=== PATIENT | female | born 1965 | race American Indian/Alaskan Native ===

== ENCOUNTER 2020-05-10 17:04 | Inpatient (IN) | payer BC, OTHER ==
[2020-05-10] MEDS ORDERED: Acetaminophen 325 MG Tab PO PRN (17:13)
[2020-05-10] MEDS ORDERED: Acetaminophen 650 MG Supp RECTAL PRN (17:13)
[2020-05-10] MEDS ORDERED: Dextrose 5%-Lactated Ringers 1,000 ML IV SCH (17:15)
[2020-05-10] MEDS: Pantoprazole 40 MG Vial IV SCH (18:41)
[2020-05-10] MEDS: Formoterol/Mometasone 200-5 MCG 8.8 GM Inhaler IH SCH (20:59)
[2020-05-11] MEDS: Pantoprazole 40 MG Vial IV SCH ×2 (05:57→17:02)
--- NOTE | 2020-05-11 07:35 | PCM.HP.2 ---
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 She was last seen in the clinic for follow up in 2008. Has had no problems related to her weight loss surgery. On April was diagnosed with C Difficile and was treated with Vancomycin. Her last BM was 05/06/2020. With the diagnosis of C Diff she started having bright red stools with blood clots then stools turned to dark formed stools. Persistent weakness and light headedness brought her to [facility] and her hemoglobin went from 14.5 to 6.2. Samia was transferred to [place], [place] ED and was given 1 unit of blood before being transferred to [facility] in [place]. Samia states she is still weak but feeling better. Has recieved a total of 3 units of PRBCs and hemoglobin is 8.4. No other associated signs and symptoms. - Related Data Allergies/Adverse Reactions: Allergies Allergy/AdvReac Type Severity Reaction Status Date / Time No Known Allergies Allergy Verified 07/29/14 13:27 Home Medications: Home Meds Albuterol Sulfate [Albuterol Sulfate HFA] 1 - 2 puff IH ASDIRECTED PRN 07/15/14 [History] Ferrous Gluconate 324 mg PO DAILY 07/15/14 [History] Furosemide [Lasix] 40 mg PO DAILY 07/15/14 [History] Loratadine 10 mg PO DAILY 07/15/14 [History] Naproxen [Naprosyn] 500 mg PO Q12HR 07/15/14 [History] Omeprazole [priLOSEC OTC] 20 mg PO DAILY 07/15/14 [History] Simvastatin [Zocor] 10 mg PO DAILY 07/15/14 [History] Cyanocobalamin (Vitamin B-12) [Vitamin B-12] 1,000 mcg PO DAILY 05/10/20 [History] Levothyroxine 125 mcg PO ACBREAKFAST 05/10/20 [History] Montelukast [Singulair] 10 mg PO DAILY 05/10/20 [History] Past Medical History HEENT History: Reports: Impaired Vision Cardiovascular History: Reports: Heart Murmur, High Cholesterol Respiratory History: Reports: Asthma ENROLLMENT ADVISOR History: Reports: Musculoskeletal History: Reports: Osteoarthritis Hematologic History: Reports: B12 Deficiency, Blood Transfusion(s) - Infectious Disease History Infectious Disease History: Reports: C-Difficile, Chicken Pox - Past Surgical History HEENT Surgical History: Reports: None Cardiovascular Surgical History: Reports: None GI Surgical History: Reports: Bariatric Procedure, Colonoscopy, EGD, Esophageal Dilatation Endocrine Surgical History: Reports: Thyroidectomy Musculoskeletal Surgical History: Reports: Arthroscopic Knee, Other (See Below) Other Musculoskeletal Surgeries/Procedures:: Bilateral Knee Social & Family History - Tobacco Use Smoking Status *Q: Never Smoker Second Hand Smoke Exposure: No - Caffeine Use Caffeine Use: Reports: Coffee - Recreational Drug Use Recreational Drug Use: No H&P Review of Systems - Review of Systems: Review Of Systems: Comprehensive ROS is negative, except as noted in HPI. General: Reports: No Symptoms HEENT: Reports: No Symptoms Pulmonary: Reports: No Symptoms Cardiovascular: Reports: No Symptoms Gastrointestinal: Reports: No Symptoms (Bloody and black stools have stopped) Genitourinary: Reports: No Symptoms Musculoskeletal: Reports: No Symptoms Skin: Reports: No Symptoms Psychiatric: Reports: No Symptoms Neurological: Reports: Weakness Hematologic/Lymphatic: Reports: No Symptoms Immunologic: Reports: No Symptoms Exam - Exam Exam: See Below - Vital Signs Vital Signs: Last Vital Signs Temp 97.8 F 05/11/20 04:56 Pulse 63 05/11/20 04:56 Resp 18 05/11/20 04:56 BP 116/48 L 05/11/20 04:56 Pulse Ox 98 05/11/20 02:12 Weight: 195 lb - Exam Quality Assessment: DVT Prophylaxis General: Alert, Oriented, Cooperative HEENT: PERRLA, Conjunctiva Clear, Hearing Intact, Mucosa Moist & [place] Neck: Supple, Trachea Midline Lungs: Clear to Auscultation, Normal Respiratory Effort Cardiovascular: Regular Rate, Regular Rhythm GI/Abdominal Exam: Normal Bowel Sounds, Soft, Non-Tender (Female) Exam: Deferred Rectal (Female) Exam: Deferred Back Exam: Normal Inspection, Full Range of Motion Extremities: Normal Inspection, Normal Range of Motion, No Pedal Edema Skin: Warm, Dry, Intact Neurological: Cranial Nerves Intact, Reflexes Equal Bilateral Neuro Extensive - Mental Status: Alert, Oriented x3, Normal Mood/Affect, Normal Cognition, Memory Intact Neuro Extensive - Motor, Sensory, Reflexes: CN II-XII Intact, Normal Reflexes Psychiatric: Alert, Normal Affect, Normal Mood - Patient Data Lab Results Last 24 hrs: Laboratory Results - last 24 hr 05/10/20 05/10/20 05/11/20 Range/Units 17:29 23:23 01:30 WBC (4.5-11.0) K/uL RBC (3.30-5.50) M/uL Hgb 6.9 L* (12.0-15.0) g/dL Hct (36.0-48.0) % MCV (80-98) fL MCH (27-31) pg MCHC (32-36) % Plt Count (150-400) K/uL Neut % (Auto) (36-66) % Lymph % (Auto) (24-44) % Bullock % (Auto) (2-6) % Eos % (Auto) (2-4) % Baso % (Auto) (0-1) % SARS-CoV-2 RNA (DIYA) Negative (NEGATIVE) Blood Type O POSITIVE Gel Antibody Screen Negative Crossmatch See Detail 05/11/20 Range/Units 06:37 WBC 7.6 (4.5-11.0) K/uL RBC 2.83 L (3.30-5.50) M/uL Hgb 8.3 L (12.0-15.0) g/dL Hct 27.4 L (36.0-48.0) % MCV 97 (80-98) fL MCH 29 (27-31) pg MCHC 30 L (32-36) % Plt Count 407 H (150-400) K/uL Neut % (Auto) 71 H (36-66) % Lymph % (Auto) 14 L (24-44) % Bullock % (Auto) 13 H (2-6) % Eos % (Auto) 2 (2-4) % Baso % (Auto) 1 (0-1) % SARS-CoV-2 RNA (DIYA) (NEGATIVE) Blood Type Gel Antibody Screen Crossmatch Result Diagrams: 05/11/20 06:37 Sepsis Event Note - Evaluation Sepsis Screening Result: No Definite Risk - Focused Exam Vital Signs: Vital Signs Temp Temp Pulse Resp BP BP Pulse Ox 05/11/20 04:56 97.8 F 63 18 116/48 L 05/11/20 04:41 98.5 F 64 18 107/49 L 05/11/20 04:12 98.3 F 64 18 108/50 L 05/11/20 03:37 97.2 F 69 18 112/48 L 05/11/20 03:12 97.0 F 65 18 115/45 L 05/11/20 02:57 98.7 F 65 18 110/48 L 05/11/20 02:39 98.3 F 64 18 105/50 L 05/11/20 02:24 99.1 F 59 L 18 106/54 L 05/11/20 02:12 99.1 F 62 18 116/62 98 05/10/20 23:31 98.9 F 70 18 115/50 L 05/10/20 23:07 98.9 F 69 20 114/45 L 05/10/20 22:36 98.5 F 69 18 110/47 L 05/10/20 22:08 98.2 F 67 18 112/47 L 05/10/20 21:48 97.6 F 72 20 115/43 L 05/10/20 21:23 97.8 F 74 20 102/44 L 05/10/20 20:48 98.9 F 70 18 107/42 L Problem List Initiated/Reviewed/Updated: Yes Orders Last 24hrs: Active Orders 24 hr Category Date Time Status Patient Status [ADT] Routine ADT 05/10/20 15:00 Active Communication Order [RC] ASDIRECTED Care 05/10/20 17:40 Active Intake and Output [RC] ASDIRECTED Care 05/10/20 17:29 Active Up ad Kera [RC] ASDIRECTED Care 05/10/20 17:29 Active Vital Signs [RC] Q4H Care 05/10/20 17:29 Active Clear Liquid Diet [DIET] Diet 05/11/20 Breakfast Active Nothing per Oral After Midnight Diet [DIET] Diet 05/11/20 Breakfast Active COMPREHENSIVE METABOLIC PN,CMP [CHEM] Routine Lab 05/11/20 06:37 Received COPPER, SERUM Routine Lab 05/11/20 06:37 Received FERRITIN [CHEM] Routine Lab 05/11/20 06:37 Received MAGNESIUM [CHEM] Routine Lab 05/11/20 06:37 Received PHOSPHORUS [CHEM] Routine Lab 05/11/20 06:37 Received RED BLOOD CELLS LP [BBK] Routine Lab 05/10/20 17:29 Results TYPE AND SCREEN [BBK] Routine Lab 05/10/20 17:29 Results VITAMIN A, SERUM Routine Lab 05/11/20 06:37 Received VITAMIN B1 (THIAMINE), BLOOD Routine Lab 05/11/20 06:37 Received VITAMIN B12 [CHEM] Routine Lab 05/11/20 06:37 Received VITAMIN D,25-HYDROXY [CHEM] Routine Lab 05/11/20 06:37 Received ZINC, PLASMA OR SERUM Routine Lab 05/11/20 06:37 Received Acetaminophen [TylenoL] Med 05/10/20 17:13 Active 650 mg PO Q4H PRN Acetaminophen [Tylenol] Med 05/10/20 17:13 Active 650 mg RECTAL Q4H PRN Dextrose 5%-Lactated Ringers 1,000 ml Med 05/10/20 17:15 Active IV ASDIRECTED Furosemide [Lasix] Med 05/11/20 09:00 Active 40 mg PO DAILY Glycopyrrolate Med 05/11/20 10:00 Active 0.4 mg IV ONCALL Levothyroxine [Synthroid] Med 05/11/20 07:30 Active 125 mcg PO ACBREAKFAST Loratadine [Claritin] Med 05/11/20 09:00 Active 10 mg PO DAILY Mometasone/Formoterol [Dulera 200-5 MCG] Med 05/10/20 21:00 Active 2 puff IH BIDRT Montelukast [Singulair] Med 05/11/20 09:00 Active 10 mg PO DAILY Pantoprazole [ProTONIX IV] Med 05/10/20 18:00 Active 40 mg IV Q12H Simvastatin [Zocor] Med 05/11/20 21:00 Active 10 mg PO BEDTIME SCD [Sequential Compression Device] [OM.PC] Routine Oth 05/10/20 17:29 Ordered Transfuse Red Blood Cells [COMM] Routine Oth 05/11/20 01:45 Ordered Resuscitation Status Routine Resus Stat 05/10/20 17:29 Ordered Medication Orders Acetaminophen (Tylenol) 650 mg PO Q4H PRN PRN Reason: PAIN/FEVER Acetaminophen (Tylenol) 650 mg RECTAL Q4H PRN PRN Reason: PAIN/FEVER Furosemide (Lasix) 40 mg PO DAILY ERLINDA Glycopyrrolate (Glycopyrrolate) 0.4 mg IV ONCALL [facility] Dextrose/Lactated Ringer's (Dextrose 5%-Lactated Ringers) 1,000 mls @ 125 mls/hr IV ASDIRECTED [facility] Last Admin: 05/10/20 18:00 Dose: 125 mls/hr Documented by: ANKIT Levothyroxine Sodium 100 mcg/ (Levothyroxine Sodium 25 mcg) 125 mcg PO AC BREAKFAST [facility] Loratadine (Claritin) 10 mg PO DAILY [facility] Mometasone Furoate/Formoterol Fumar (Dulera 200-5 Mcg) 2 puff IH BIDRT [facility] Last Admin: 05/10/20 20:59 Dose: 2 puff Documented by: LAZARUS Montelukast Sodium (Singulair) 10 mg PO DAILY [facility] Pantoprazole Sodium (Protonix Iv) 40 mg IV Q12H [facility] Last Admin: 05/11/20 05:57 Dose: 40 mg Documented by: Admin: 05/10/20 18:41 Dose: 40 mg Documented by: ANKIT Simvastatin (Zocor) 10 mg PO BEDTIME [facility] Assessment: GI Bleed Weakness Low Hemoglobin Plan: EGD today Orders as above Admission to INpatient with expected plan of stay 2 nights and 3 days Farrah Moreno 05/11/2020 - Mortality Measure Prognosis:: Good
[2020-05-11] MEDS ORDERED: fentaNYL 100 MCG/2 ML SDV ONE (08:53)
[2020-05-11] MEDS ORDERED: Propofol 200 MG/20 ML SDV ONE (08:53)
[2020-05-11] MEDS ORDERED: Midazolam 1 MG/ML 2 ML SDV ONE (08:53)
[2020-05-11] MEDS: Potassium Chloride 20 MEQ, Lidocaine 1% 2 ML in Sodium Chloride 0.9% 100 ML IV SCH ×3 (10:00→14:12)
[2020-05-11] MEDS ORDERED: Glycopyrrolate 0.2 MG/ML 2 ML SDV IV SCH (10:00)
[2020-05-11] MEDS: Formoterol/Mometasone 200-5 MCG 8.8 GM Inhaler IH SCH ×2 (10:04→20:38)
[2020-05-11] MEDS: Loratadine 10 MG Tab PO SCH (10:05)
[2020-05-11] MEDS: Levothyroxine 100 MCG, Levothyroxine 25 MCG PO SCH ×2 (10:05)
[2020-05-11] MEDS: Furosemide 40 MG Tab PO SCH (10:05)
[2020-05-11] MEDS: Montelukast 10 MG Tab PO SCH (10:05)
[2020-05-11] MEDS ORDERED: MVI, Adult with Vitamin K 10 ML, Thiamine 200 MG, Chromium/Copper/Mang/Selen/Zn 1 ML in... IV ONE ×4 (12:00)
[2020-05-11] MEDS: Sodium Ferric Gluconate Cmplex 250 MG in Sodium Chloride 0.9% 100 ML IV SCH (13:43)
--- NOTE | 2020-05-11 13:46 | OR ---
DATE OF PROCEDURE: 05/11/2020 SURGEON: aYn Nava MD PROCEDURE: Esophagogastroduodenoscopy. FINDINGS: 1. Normal Keiry-en-Y without evidence of ulceration, structure, or bleeding. 2. No old or new blood. COMPLICATIONS: None. ASSOCIATION EXECUTIVE: None. RISKS: Risks, benefits, alternatives, and limitations including, but not limited to infection, bleeding, and perforation were explained to the patient, who wished to proceed. PROCEDURE IN DETAIL: The patient was placed in a left lateral decubitus position. EGD scope was introduced and advanced atraumatically into the Keiry-en-Y limb. No evidence of ulceration. No old or new blood. The pouch was appropriately-sized. No evidence of marginal ulcer or any abnormality. The esophagus was normal. The patient tolerated the procedure well. Yan Nava MD /[id number]
[2020-05-11] MEDS: Simvastatin 20 MG Tab PO SCH (20:38)
[2020-05-12] MEDS: Pantoprazole 40 MG Vial IV SCH (06:24)
[2020-05-12] MEDS: Levothyroxine 100 MCG, Levothyroxine 25 MCG PO SCH ×2 (07:16)
--- NOTE | 2020-05-12 08:10 | PN ---
DATE OF SERVICE: 05/12/2020 SUBJECTIVE: Samia's vital signs have been stable. She had an EGD yesterday, which was normal, showed no upper GI bleed. Hemoglobin 8, hematocrit 26.9, potassium 3.2, albumin is 2.3, and protein 4.8. Continues to feel very weak and has no energy. REVIEW OF SYSTEMS: HEENT: Negative. NECK: Negative. HEART: No chest pain or shortness of breath. LUNGS: No cough. ABDOMEN: Denies any pain. Last bowel movement was 05/12. Oral intake 2160 and urine output 5500. : Negative. EXTREMITIES: Revealed chronic peripheral edema. States legs feel weak. NEUROLOGIC: Denies any falls or loss of coordination. PSYCHIATRIC: Negative for insomnia, depression, or anxiety. SKIN: Negative for rash. Remainder of review of systems negative for any pertinent positives and negatives. OBJECTIVE: GENERAL: Samia Hernandez is a pleasant 54-year-old female. Color pale. Alert, orientated. VITAL SIGNS: TPR at 0710: 97.7, 70, 20. Blood pressure 117/48. HEENT: Negative. NECK: Supple. HEART: Regular rate and rhythm. LUNGS: Clear. ABDOMEN: Soft, nontender. EXTREMITIES: Reveal chronic peripheral edema. NEUROLOGIC: Intact. PSYCHIATRIC: Mood and affect appropriate. ASSESSMENT: 1. Gastrointestinal bleed status post colitis, weakness, low hemoglobin. 2. Low albumin. PLAN: 1. 1 unit of packed red blood cells today. Check hemoglobin 2 hours after that unit of blood is infused. Call with results. 2. KCl 40 mEq p.o. b.i.d. 3. Albumin 50 g IV today. 4. Give 2nd dose of ferrous sodium gluconate for low ferritin. 5. Advanced to bariatric step 4 diet. 6. Dietary consult. 7. Bariatric consult. 8. Check CBC, CMP, mag, phos in a.m. 9. Protonix 40 mg b.i.d. 10.Potassium chloride 60 mEq in 3 divided doses. 11.We will evaluate p.r.n. or in a.m. 12.Plan, discharge in a.m. Farrah Stringer PA-C /[id number]
[2020-05-12] MEDS: Formoterol/Mometasone 200-5 MCG 8.8 GM Inhaler IH SCH ×2 (08:14→20:16)
[2020-05-12] MEDS: Montelukast 10 MG Tab PO SCH (08:15)
[2020-05-12] MEDS: Furosemide 40 MG Tab PO SCH (08:15)
[2020-05-12] MEDS: Loratadine 10 MG Tab PO SCH (08:15)
[2020-05-12] MEDS: Potassium Chloride 20 MEQ Tab.ER PO SCH ×2 (08:16→20:16)
[2020-05-12] MEDS: Potassium Chloride 20 MEQ, Lidocaine 1% 2 ML in Sodium Chloride 0.9% 100 ML IV SCH ×3 (09:25→13:24)
[2020-05-12] MEDS: Sodium Ferric Gluconate Cmplex 250 MG in Sodium Chloride 0.9% 100 ML IV SCH (16:02)
[2020-05-12] MEDS: Pantoprazole 40 MG Tab.CR PO SCH (16:04)
[2020-05-12] MEDS: Simvastatin 20 MG Tab PO SCH (20:17)
[2020-05-13] MEDS: Levothyroxine 100 MCG, Levothyroxine 25 MCG PO SCH ×2 (07:26)
[2020-05-13] MEDS: Pantoprazole 40 MG Tab.CR PO SCH (07:26)
[2020-05-13] MEDS: Formoterol/Mometasone 200-5 MCG 8.8 GM Inhaler IH SCH (07:39)
[2020-05-13] MEDS: Potassium Chloride 20 MEQ Tab.ER PO SCH (08:13)
[2020-05-13] MEDS: Loratadine 10 MG Tab PO SCH (08:13)
[2020-05-13] MEDS: Montelukast 10 MG Tab PO SCH (08:13)
[2020-05-13] MEDS: Furosemide 40 MG Tab PO SCH (08:13)
--- NOTE | 2020-05-13 09:37 | DISCH ---
ADMISSION DIAGNOSES: 1. Gastrointestinal bleed. 2. Hemoglobin 6.2. 3. History of Clostridium difficile on 04/28/2020, treated with vancomycin. 4. Status post Keiry-en-Y gastric bypass surgery. 5. Unspecified surgical malabsorption. 6. B12 deficiency. 7. Asthma. 8. Osteoarthritis. 9. Hypercholesterolemia. 10.Hypothyroidism. DISCHARGE DIAGNOSES: 1. Esophagogastroduodenoscopy. Date of procedure: 05/11/2020. Surgeon: Yan Nava MD. 2. Gastrointestinal bleed, resolved. 3. Packed red blood cells 3 units given for hemoglobin 6.2. 4. Low ferritin at 32, receiving 2 doses of iron gluconate. 5. Hypokalemia. Admission potassium 2.9. 6. Hypothyroidism. HISTORY: Samia Hernandez was transferred from [facility] to [facility] on 05/10/2020. She was diagnosed with Clostridium difficile on 04/28/2020, treated with vancomycin. Last BM was 05/06/2020, and the stools have been bright red with blood clots. The patient persisted with persistent weakness, lightheadedness. Hemoglobin initially was 14.5, and on day of admission was 6.2. Samia was admitted to the hospital on 05/10/2020. She received 2 units of packed red blood cells. Her potassium was replaced IV for a potassium of 2.9. Other vital signs remained stable throughout hospitalization, afebrile. An esophagogastroduodenoscopy was done on 05/11/2020, Yan Nava MD. Findings were normal without evidence of ulceration, stricture, or bleeding. No old or new blood. Samia's hemoglobin was 8.3, then 8. She was given, on 05/12/20, another unit of packed red blood cells, along with her second dose of iron gluconate. Potassium was replaced IV and orally. On 05/13/2020, she was able to be discharged to home. Hemoglobin was 8.6, hematocrit 28.4, potassium was 3.6, and albumin was 2.9. Samia had dietary and bariatric consultations. On 05/13/2020, she needed to go home, instead of having a colonoscopy tomorrow, because her grandson lives with them. She was discharged to home. She had a normal bowel movement, it was not black or bloody. Hemoglobin on discharge was 8.6. REVIEW OF SYSTEMS: GENERAL: No fever, chills, night sweats. States she does feel weak and gets dizzy if she stands up too fast, bends over or moves too fast. HEENT: Wears corrective lenses. No headaches. PULMONARY: No shortness of breath. No symptoms of asthma. CARDIOVASCULAR: No chest pain. Fast irregular heart beat. GASTROINTESTINAL: No further bloody stools. Denies any pain. No dysphagia. GENITOURINARY: Negative for any urinary tract infection signs and symptoms. MUSCULOSKELETAL: Denies any joint pain or swelling. Legs just feel weak. SKIN: No rash. PSYCHIATRIC: Negative for depression, anxiety, or insomnia. Remainder of review of systems negative for any pertinent positives and negatives. OBJECTIVE: GENERAL: Samia Hernandez is a pleasant 54-year-old female. VITAL SIGNS: Height is 5 feet 7 inches, weight is 195 pounds. TPR at 0653 is 98, 69, 16, blood pressure 111/48, and O2 sats on room air 94%. HEENT: Negative. NECK: Supple. HEART: Regular rate and rhythm. LUNGS: Clear. ABDOMEN: Soft and nontender. EXTREMITIES: Without peripheral edema. NEUROLOGIC: Intact. PSYCHIATRIC: Mood and affect appropriate. DISPOSITION: Discharged to home. CONDITION: Stable. FOLLOWUP: With Farrah Stringer PA-C, on 05/27/2020 at 11:00 a.m. HOME MEDICATIONS: 1. Potassium chloride 20 mEq b.i.d., #60 1 refill. 2. Protonix 40 mg twice daily, #60. 3. Tylenol 650 mg oral q.4 hours p.r.n. pain. 4. Vitron-C 1 b.i.d., #60. 5. She is to resume taking her home medication: a. Albuterol sulfate 1 to 2 puffs inhalation p.r.n. allergies. b. Vitamin B12 1000 mcg oral in a.m. c. Lasix 40 mg oral daily in a.m. d. Levothyroxine 125 mcg oral before breakfast. e. Loratadine 10 mg oral daily. f. Singulair 10 mg oral daily. g. Simvastatin 10 mg oral daily. DIET: Usual diet as tolerated, 65 g of protein and 64 ounces of fluid. ACTIVITY: As tolerated. Shower/bathing: May shower. DISCHARGE INSTRUCTIONS: Notify provider if any fever, nausea, vomiting, black or red stools. SPECIAL INSTRUCTIONS: Schedule colonoscopy with Antonio Burnham MD, at earliest convenience. Will need preop COVID testing.
== END 2020-05-13 12:15 | disposition home or self-care (01) | DRG 663 ==
LOC: JP.MS 17:04
PROVIDERS: ADMIT Surgery; ATTEND Surgery
PROC: 30233N0 Transfusion of Autologous Red Blood Cells into Peripheral Vein, Percutaneous Approach (ICD-10-PCS; principal; 2020-05-10)
PROC: 0DJ08ZZ Inspection of Upper Intestinal Tract, Via Natural or Artificial Opening Endoscopic (ICD-10-PCS; 2020-05-11)
DX: D64.9 Anemia, unspecified (principal); K92.2 Gastrointestinal hemorrhage, unspecified; E87.6 Hypokalemia; K91.2 Postsurgical malabsorption, not elsewhere classified; Z20.828 Contact with and (suspected) exposure to other viral communicable diseases; J45.909 Unspecified asthma, uncomplicated; M19.90 Unspecified osteoarthritis, unspecified site; E78.00 Pure hypercholesterolemia, unspecified; E03.9 Hypothyroidism, unspecified; Z98.84 Bariatric surgery status; Z79.890 Hormone replacement therapy; Z79.899 Other long term (current) drug therapy; E53.8 Deficiency of other specified B group vitamins
CPT/HCPCS: 36415; 36430; 80053; 82306; 82525; 82607; 82728; 83735; 84100; 84425; 84590; 84630; 85018; 85025; 85027; 86850; 86900; 86901; 86920; 86922; 94640; A9270-GY; C9113; J2001; J2250; J2704; J2916; J3010; J3411; J3480; J7050; J7120; J7121; P9016; P9047; U0002

== ENCOUNTER 2020-05-20 09:30 | Day surgery (SDC) | payer BC, OTHER ==
[2020-05-20] MEDS ORDERED: Dextrose 5%-Lactated Ringers 1,000 ML IV SCH (10:00)
[2020-05-20] MEDS ORDERED: Propofol 200 MG/20 ML SDV ONE (11:13)
[2020-05-20] MEDS ORDERED: Midazolam 1 MG/ML 2 ML SDV ONE (11:13)
[2020-05-20] MEDS ORDERED: fentaNYL 100 MCG/2 ML SDV ONE (11:13)
--- NOTE | 2020-05-27 08:48 | OR ---
DATE OF PROCEDURE: 05/20/2020 SURGEON: Antonio Burnham MD PREOPERATIVE DIAGNOSIS: Recent heavy bright red rectal bleeding. POSTOPERATIVE DIAGNOSIS: Recent heavy bright red rectal bleeding, likely secondary to diverticulosis. OPERATIVE PROCEDURE: Flexible colonoscopy. ANESTHESIA: IV sedation. INDICATION FOR PROCEDURE: This is a 54-year-old who recently had a single episode of a large amount of rectal bleeding. This caused her hemoglobin to drop as low as 6.2. She had a negative upper endoscopy, and at this point, the plan is to undergo a colonoscopy for diagnostic purposes. Potential risks of the procedure including bleeding and perforation were discussed, and the patient wishes to proceed. DETAILS OF PROCEDURE: The patient was taken to the operating room and placed in a left lateral decubitus position. The patient's digital rectal exam was performed, and it was unremarkable. Colonoscope was then passed into the rectum with retroflexion revealing uncomplicated hemorrhoidal columns. Scope was eventually passed to the cecum. The prep was quite good. Findings included quite extensive diverticulosis in the left colon. This was not associated with any bleeding or significant inflammation. Apart from that, there were no areas of colitis or polyps or other signs of neoplasia. The scope was then withdrawn and the procedure then concluded. The patient's history is highly suggestive of a bleeding diverticulosis episode. Presently, her hemoglobin today is 12.1 and ferritin is 287, so she has caught up well with regard to those issues. As a general principle, the patient should undergo a repeat colonoscopy in 10 years as a screening colonoscopy, as she does not have any family or personal history of colonic neoplasia. Most of these are bleeding diverticular episodes will not recur. If it does recur more than 2 or 3 times, one might consider a segmental resection. Antonio Burnham MD /[id number]
== END 2020-05-20 12:19 | disposition home or self-care (01) ==
LOC: JP.SDS 09:30
PROVIDERS: ATTEND Surgery
DX: K57.30 Diverticulosis of large intestine without perforation or abscess without bleeding (principal); K64.9 Unspecified hemorrhoids; I10 Essential (primary) hypertension; E66.9 Obesity, unspecified; Z91.040 Latex allergy status; Z91.09 Other allergy status, other than to drugs and biological substances; Z68.29 Body mass index [BMI] 29.0-29.9, adult
CPT/HCPCS: 36415; 45378; 82728; 85027; J2250; J2704; J3010; J7121

== ENCOUNTER 2021-01-31 11:20 | Inpatient (IN) | payer BC, OTHER ==
[2021-01-31] MEDS ORDERED: Sodium Chloride 0.9% 10 ML Syringe FLUSH PRN (13:16)
--- NOTE | 2021-01-31 13:19 | EDM.PDOC ---
ED HPI GENERAL MEDICAL PROBLEM - General Chief Complaint: Abdominal Pain Stated Complaint: DIVERTICULITIS BLOOD IN STOOL STARTED SUNDAY Time Seen by Provider: 01/31/21 13:07 Source of Information: Reports: Patient, Provider, RN Notes Reviewed History Limitations: Reports: No Limitations - History of Present Illness INITIAL COMMENTS - FREE TEXT/NARRATIVE: 55-year-old female presents the emergency department a complaint of bright red blood per rectum, she has known history of diverticular disease and has had bleeding diverticula in the past she has been dealing with this for several months. Over the last 3 days she has had significant rectal bleeding did present to the clinic at [facility] today did receive a call from the provider for transfer here for further evaluation. She has not had any blood work done this morning. Does feel lightheaded weak no chest pain no shortness of breath no fevers, history of gastric bypass Lower Abdomen Pain Score (Numeric/FACES): 3 - Related Data Allergies Allergy/AdvReac Type Severity Reaction Status Date / Time adhesive tape Allergy Rash Verified 01/31/21 13:33 doxycycline Allergy Rash Verified 01/31/21 13:33 Iodinated Contrast Media Allergy Swelling Verified 01/31/21 13:33 latex Allergy Rash Verified 01/31/21 13:33 zileuton Allergy Hives Verified 01/31/21 13:33 Home Meds: Home Meds Albuterol Sulfate [Albuterol Sulfate HFA] 1 - 2 puff IH ASDIRECTED PRN 07/15/14 [History] Furosemide [Lasix] 40 mg PO DAILY 07/15/14 [History] Loratadine 10 mg PO DAILY 07/15/14 [History] Simvastatin [Zocor] 10 mg PO DAILY 07/15/14 [History] Cyanocobalamin (Vitamin B-12) [Vitamin B-12] 1,000 mcg PO DAILY 05/10/20 [History] Levothyroxine 125 mcg PO ACBREAKFAST 05/10/20 [History] Montelukast [Singulair] 10 mg PO DAILY 05/10/20 [History] Acetaminophen [Tylenol] 650 mg PO Q4H PRN tablet 05/13/20 [Rx] Iron,Carbonyl/Ascorbic Acid [Vitron-C Tablet] 1 each PO BID #60 tablet. 05/13/20 [Rx] Pantoprazole [ProTONIX] 40 mg PO BIDAC #60 tab.cr 05/13/20 [Rx] Potassium Chloride [Klor-Con M20] 20 meq PO BID #60 tab.er 05/13/20 [Rx] Naproxen 500 mg PO ASDIRECTED PRN 05/18/20 [History] Fluticasone Propion/Salmeterol [Fluticasone-Salmeterol 500-50] 1 puff INH BID 05/20/20 [History] Aspirin [Low Dose Aspirin EC] 81 mg PO DAILY 01/31/21 [History] Past Medical History HEENT History: Reports: Impaired Vision Cardiovascular History: Reports: Heart Murmur, High Cholesterol, Hypertension Respiratory History: Reports: Asthma Gastrointestinal History: Reports: Diverticulosis, GI Bleed, Hemorrhoids 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: Musculoskeletal History: Reports: Osteoarthritis Endocrine/Metabolic History: Reports: Hypothyroidism Hematologic History: Reports: B12 Deficiency, Blood Transfusion(s) - Infectious Disease History Infectious Disease History: Reports: C-Difficile, Chicken Pox - Past Surgical History HEENT Surgical History: Reports: None Cardiovascular Surgical History: Reports: None GI Surgical History: Reports: Bariatric Procedure, Colonoscopy, EGD, Esophageal Dilatation Endocrine Surgical History: Reports: Thyroidectomy Musculoskeletal Surgical History: Reports: Arthroscopic Knee, Other (See Below) Other Musculoskeletal Surgeries/Procedures:: Bilateral Knee Social & Family History - Caffeine Use Caffeine Use: Reports: Coffee ED ROS GENERAL - Review of Systems Review Of Systems: See Below Constitutional: Reports: Weakness. Denies: Fever, Chills HEENT: Reports: No Symptoms Respiratory: Reports: No Symptoms Cardiovascular: Reports: No Symptoms GI/Abdominal: Reports: Bloody Stool. Denies: Abdominal Pain, Nausea, Vomiting : Reports: No Symptoms ED EXAM, GI/ABD - Physical Exam Exam: See Below Exam Limited By: No Limitations General Appearance: Alert, WD/WN, No Apparent Distress Respiratory/Chest: No Respiratory Distress, Lungs Clear, Normal Breath Sounds, No Accessory Muscle Use, Chest Non-Tender Cardiovascular: Regular Rate, Rhythm, Systolic Murmur GI/Abdominal Exam: Soft, Non-Tender Extremities: No Pedal Edema Course - Vital Signs Last Recorded V/S: Last Vital Signs Temp 97.9 F 01/31/21 13:40 Pulse 68 01/31/21 13:40 Resp 16 01/31/21 13:40 BP 105/57 L 01/31/21 13:40 Pulse Ox 100 01/31/21 13:40 - Orders/Labs/Meds Orders: Active Orders 24 hr Category Date Time Status Peripheral IV Care [RC] . DIRECTED Care 01/31/21 13:17 Active Lactated Ringers [Ringers, Lactated] 1,000 ml Med 01/31/21 13:30 Active IV ASDIRECTED Sodium Chloride 0.9% [Saline Flush] Med 01/31/21 13:16 Active 10 ml FLUSH ASDIRECTED PRN Peripheral IV Insertion Adult [OM.PC] Urgent Oth 01/31/21 13:16 Ordered Medication Orders Lactated Ringer's (Ringers, Lactated) 1,000 mls @ 125 mls/hr IV ASDIRECTED ERLINDA Last Admin: 01/31/21 14:37 Dose: 125 mls/hr Documented by: NICOLE Sodium Chloride (Sodium Chloride 0.9% 10 Ml Syringe) 10 ml FLUSH ASDIRECTED PRN PRN Reason: Keep Vein Open Labs: Laboratory Tests 01/31/21 01/31/21 01/31/21 Range/Units 13:34 13:34 13:34 WBC (4.5-11.0) K/uL RBC (3.30-5.50) M/uL Hgb (12.0-15.0) g/dL Hct (36.0-48.0) % MCV (80-98) fL MCH (27-31) pg MCHC (32-36) % Plt Count (150-400) K/uL Neut % (Auto) (36-66) % Lymph % (Auto) (24-44) % [place] % (Auto) (2-6) % Eos % (Auto) (2-4) % Baso % (Auto) (0-1) % PT 10.5 (9.5-12.0) sec INR 0.96 (0.80-1.20) Sodium 143 (140-148) mmol/L Potassium 4.0 (3.6-5.2) mmol/L Chloride 104 (100-108) mmol/L Carbon Dioxide 30 (21-32) mmol/L Anion Gap 9.5 (5.0-14.0) mmol/L BUN 29 H D (7-18) mg/dL Creatinine 1.1 H (0.6-1.0) mg/dL Est Cr Clr Drug Dosing 56.19 mL/min Estimated GFR (MDRD) 52 L (>60) Glucose 119 H (74-106) mg/dL Lactic Acid (0.4-2.0) mmol/L Calcium 8.1 L (8.5-10.1) mg/dL Total Bilirubin 0.4 D (0.2-1.0) mg/dL AST 18 (15-37) U/L ALT 20 (12-78) U/L Alkaline Phosphatase 78 (46-116) U/L Total Protein 6.2 L (6.4-8.2) g/dL Albumin 3.3 L (3.4-5.0) g/dL Globulin 2.9 (2.3-3.5) g/dL Albumin/Globulin Ratio 1.1 L (1.2-2.2) 01/31/21 Range/Units 13:34 WBC (4.5-11.0) K/uL RBC (3.30-5.50) M/uL Hgb (12.0-15.0) g/dL Hct (36.0-48.0) % MCV (80-98) fL MCH (27-31) pg MCHC (32-36) % Plt Count (150-400) K/uL Neut % (Auto) (36-66) % Lymph % (Auto) (24-44) % [place] % (Auto) (2-6) % Eos % (Auto) (2-4) % Baso % (Auto) (0-1) % PT (9.5-12.0) sec INR (0.80-1.20) Sodium (140-148) mmol/L Potassium (3.6-5.2) mmol/L Chloride (100-108) mmol/L Carbon Dioxide (21-32) mmol/L Anion Gap (5.0-14.0) mmol/L BUN (7-18) mg/dL Creatinine (0.6-1.0) mg/dL Est Cr Clr Drug Dosing mL/min Estimated GFR (MDRD) (>60) Glucose (74-106) mg/dL Lactic Acid 0.9 (0.4-2.0) mmol/L Calcium (8.5-10.1) mg/dL Total Bilirubin (0.2-1.0) mg/dL AST (15-37) U/L ALT (12-78) U/L Alkaline Phosphatase (46-116) U/L Total Protein (6.4-8.2) g/dL Albumin (3.4-5.0) g/dL Globulin (2.3-3.5) g/dL Albumin/Globulin Ratio (1.2-2.2) Meds: Medications Generic Name Dose Route Start Last Admin Trade Name Freq PRN Reason Stop Dose Admin Lactated Ringer's 1,000 mls @ 125 mls/hr 01/31/21 13:30 01/31/21 14:37 Ringers, Lactated IV 125 mls/hr ASDIRECTED ERLINDA Administration Sodium Chloride 10 ml 01/31/21 13:16 Sodium Chloride 0.9% 10 Ml Syringe FLUSH ASDIRECTED PRN Keep Vein Open Departure - Departure Time of Disposition: 15:54 Disposition: Admitted As Inpatient 66 Condition: Fair Clinical Impression: Bright red blood per rectum - Discharge Information Referrals: PCP,Unknown [Primary Care Provider] - Forms: ED Department Discharge Sepsis Event Note (ED) - Focused Exam Vital Signs: Vital Signs Temp Pulse Resp BP Pulse Ox 01/31/21 13:40 97.9 F 68 16 105/57 L 100 01/31/21 13:08 97.9 F 68 16 105/57 L 100 - My Orders Last 24 Hours: My Active Orders 01/31/21 13:16 Sodium Chloride 0.9% [Saline Flush] 10 ml FLUSH ASDIRECTED PRN Peripheral IV Insertion Adult [OM.PC] Urgent 01/31/21 13:17 Peripheral IV Care [RC] . DIRECTED 01/31/21 13:30 Lactated Ringers [Ringers, Lactated] 1,000 ml IV ASDIRECTED - Assessment/Plan Last 24 Hours: My Active Orders 01/31/21 13:16 Sodium Chloride 0.9% [Saline Flush] 10 ml FLUSH ASDIRECTED PRN Peripheral IV Insertion Adult [OM.PC] Urgent 01/31/21 13:17 Peripheral IV Care [RC] . DIRECTED 01/31/21 13:30 Lactated Ringers [Ringers, Lactated] 1,000 ml IV ASDIRECTED Plan: Assessment Acuity = acute Site and laterality = bright red blood per rectum Etiology = unknown Manifestations = none Location of injury = Home Lab values = hemoglobin low at 8.4 consistent normochromic anemia, creatinine elevated 1.1 consistent with chronic renal failure stage T3a lactic acid normal 0.8 Plan Call discussed case with Dr. Burnham at 1553 recommended admission call discussed case with hospitalist on-call at 1400 kindly agreed to come and evaluate the patient emergency department for admission recommend transfusion 1 unit of packed red blood cells This note was dictated using [employer] voice recognition software please call with any questions on syntax or grammar.
[2021-01-31] MEDS: Lactated Ringers 1,000 ML IV SCH (14:37)
--- NOTE | 2021-01-31 16:30 | PCM.HP.2 ---
H&P History of Present Illness - General Date of Service: 01/31/21 Admit Problem/Dx: Admission Diagnosis/Problem Admission Diagnosis/Problem Gastrointestinal hemorrhage Source of Information: Patient, Provider History Limitations: Reports: No Limitations - History of Present Illness Initial Comments - Free Text/Narative: CC: I'm bleeding again HPI: Samia presents to the emergency room today with 2-1/2 days of bright red blood per rectum. She reports a large enough quantity of blood with each bowel movement to turn the stool dark red. She does not report abdominal pain per se but does have some cramping that precedes each of the bloody bowel movements. She had a couple on Sunday night as well as a bunch of them on Sunday. She had none yesterday which was Sunday but then they started again overnight and into the morning. She has some nausea but has not had any vomiting. She is not aware of any fevers or chills. She does report lightheadedness, weakness and her legs get weak and shaky with more than a few steps of ambulation. Weakness and lightheadedness to get better when she lays down flat. Symptoms have steadily been getting worse which prompted her emergency room visit today. She is not taking any new medications. She does report that she takes naproxen twice a day. She does have a history of similar episodes with her most recent episode being 2 months ago. She does report a history of difficulty with anesthesia with prolonged nausea and some vomiting after surgical intervention. She had a gastric bypass in 2007. Work-up in the emergency room revealed a hemoglobin of 8.4 with a normal white blood cell count. She is mildly dehydrated and creatinine is slightly elevated from baseline. With her symptomatic anemia due to acute blood loss the plan is for hospital admission with additional work-up including EGD in the morning and likely a colonoscopy after that. Lower Abdomen Pain Score (Numeric/FACES): 3 - Related Data Allergies/Adverse Reactions: Allergies Allergy/AdvReac Type Severity Reaction Status Date / Time adhesive tape Allergy Rash Verified 01/31/21 13:33 doxycycline Allergy Rash Verified 01/31/21 13:33 Iodinated Contrast Media Allergy Swelling Verified 01/31/21 13:33 latex Allergy Rash Verified 01/31/21 13:33 zileuton Allergy Hives Verified 01/31/21 13:33 Home Medications: Home Meds Albuterol Sulfate [Albuterol Sulfate HFA] 1 - 2 puff IH ASDIRECTED PRN 07/15/14 [History] Furosemide [Lasix] 40 mg PO DAILY 07/15/14 [History] Loratadine 10 mg PO DAILY 07/15/14 [History] Simvastatin [Zocor] 10 mg PO DAILY 07/15/14 [History] Cyanocobalamin (Vitamin B-12) [Vitamin B-12] 1,000 mcg PO DAILY 05/10/20 [History] Levothyroxine 125 mcg PO ACBREAKFAST 05/10/20 [History] Montelukast [Singulair] 10 mg PO DAILY 05/10/20 [History] Acetaminophen [Tylenol] 650 mg PO Q4H PRN tablet 05/13/20 [Rx] Iron,Carbonyl/Ascorbic Acid [Vitron-C Tablet] 1 each PO BID #60 tablet.dr 05/13/20 [Rx] Pantoprazole [ProTONIX] 40 mg PO BIDAC #60 tab.cr 05/13/20 [Rx] Potassium Chloride [Klor-Con M20] 20 meq PO BID #60 tab.er 05/13/20 [Rx] Naproxen 500 mg PO ASDIRECTED PRN 05/18/20 [History] Fluticasone Propion/Salmeterol [Fluticasone-Salmeterol 500-50] 1 puff INH BID 05/20/20 [History] Aspirin [Low Dose Aspirin EC] 81 mg PO DAILY 01/31/21 [History] Past Medical History HEENT History: Reports: Impaired Vision Cardiovascular History: Reports: Heart Murmur, High Cholesterol, Hypertension Respiratory History: Reports: Asthma Gastrointestinal History: Reports: Diverticulosis, GI Bleed, Hemorrhoids 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: Musculoskeletal History: Reports: Osteoarthritis Endocrine/Metabolic History: Reports: Hypothyroidism Hematologic History: Reports: B12 Deficiency, Blood Transfusion(s) - Infectious Disease History Infectious Disease History: Reports: C-Difficile, Chicken Pox - Past Surgical History HEENT Surgical History: Reports: None Cardiovascular Surgical History: Reports: None GI Surgical History: Reports: Bariatric Procedure, Colonoscopy, EGD, Esophageal Dilatation Endocrine Surgical History: Reports: Thyroidectomy Musculoskeletal Surgical History: Reports: Arthroscopic Knee, Other (See Below) Other Musculoskeletal Surgeries/Procedures:: Bilateral Knee Social & Family History - Family History Endocrine/Metabolic: Reports: Diabetes, type II (Father) - Tobacco Use Tobacco Use Status *Q: Never Tobacco User Second Hand Smoke Exposure: No - Caffeine Use Caffeine Use: Reports: Coffee, Soda - Recreational Drug Use Recreational Drug Use: No H&P Review of Systems - Review of Systems: Review Of Systems: See Below Free Text/Narrative: A complete 12 point review of systems was obtained. Pertinent positives and negatives are noted in the history of present illness. All other systems were reviewed and were negative except as noted. Exam - Exam Exam: See Below - Vital Signs Vital Signs: Last Vital Signs Temp 36.6 C 01/31/21 13:40 Pulse 68 01/31/21 13:40 Resp 16 01/31/21 13:40 BP 105/57 L 01/31/21 13:40 Pulse Ox 100 01/31/21 13:40 Weight: 79.379 kg - Exam Quality Assessment: No: Supplemental Oxygen General: Alert, Oriented, Cooperative. No: Mild Distress HEENT: Conjunctiva Clear. No: Mucosa Moist & [place] (Dry), Scleral Icterus Neck: Supple, Trachea Midline. No: Lymphadenopathy Lungs: Clear to Auscultation, Normal Respiratory Effort Cardiovascular: Regular Rate, Regular Rhythm, Systolic Murmur (Soft systolic ejection murmur right upper sternal border) GI/Abdominal Exam: Normal Bowel Sounds, Soft, No Distention, Tender (Mild lower abdomen right side greater than left). No: Guarding Back Exam: Normal Inspection, Full Range of Motion Extremities: No Pedal Edema. No: Increased Warmth Skin: Warm, Dry Neuro Extensive - Mental Status: Alert, Oriented x3, Nl Response to Commands Neuro Extensive - Motor, Sensory, Reflexes: No: Dysarthria, Abnormal Motor, Tremor Psychiatric: Alert, Normal Affect - Patient Data Lab Results Last 24 hrs: Laboratory Results - last 24 hr 01/31/21 01/31/21 01/31/21 Range/Units 13:34 13:34 13:34 WBC (4.5-11.0) K/uL RBC (3.30-5.50) M/uL Hgb (12.0-15.0) g/dL Hct (36.0-48.0) % MCV (80-98) fL MCH (27-31) pg MCHC (32-36) % Plt Count (150-400) K/uL Neut % (Auto) (36-66) % Lymph % (Auto) (24-44) % [place] % (Auto) (2-6) % Eos % (Auto) (2-4) % Baso % (Auto) (0-1) % PT 10.5 (9.5-12.0) sec INR 0.96 (0.80-1.20) Sodium 143 (140-148) mmol/L Potassium 4.0 (3.6-5.2) mmol/L Chloride 104 (100-108) mmol/L Carbon Dioxide 30 (21-32) mmol/L Anion Gap 9.5 (5.0-14.0) mmol/L BUN 29 H D (7-18) mg/dL Creatinine 1.1 H (0.6-1.0) mg/dL Est Cr Clr Drug Dosing 56.19 mL/min Estimated GFR (MDRD) 52 L (>60) Glucose 119 H (74-106) mg/dL Lactic Acid (0.4-2.0) mmol/L Calcium 8.1 L (8.5-10.1) mg/dL Total Bilirubin 0.4 D (0.2-1.0) mg/dL AST 18 (15-37) U/L ALT 20 (12-78) U/L Alkaline Phosphatase 78 (46-116) U/L Total Protein 6.2 L (6.4-8.2) g/dL Albumin 3.3 L (3.4-5.0) g/dL Globulin 2.9 (2.3-3.5) g/dL Albumin/Globulin Ratio 1.1 L (1.2-2.2) 01/31/21 Range/Units 13:34 WBC (4.5-11.0) K/uL RBC (3.30-5.50) M/uL Hgb (12.0-15.0) g/dL Hct (36.0-48.0) % MCV (80-98) fL MCH (27-31) pg MCHC (32-36) % Plt Count (150-400) K/uL Neut % (Auto) (36-66) % Lymph % (Auto) (24-44) % [place] % (Auto) (2-6) % Eos % (Auto) (2-4) % Baso % (Auto) (0-1) % PT (9.5-12.0) sec INR (0.80-1.20) Sodium (140-148) mmol/L Potassium (3.6-5.2) mmol/L Chloride (100-108) mmol/L Carbon Dioxide (21-32) mmol/L Anion Gap (5.0-14.0) mmol/L BUN (7-18) mg/dL Creatinine (0.6-1.0) mg/dL Est Cr Clr Drug Dosing mL/min Estimated GFR (MDRD) (>60) Glucose (74-106) mg/dL Lactic Acid 0.9 (0.4-2.0) mmol/L Calcium (8.5-10.1) mg/dL Total Bilirubin (0.2-1.0) mg/dL AST (15-37) U/L ALT (12-78) U/L Alkaline Phosphatase (46-116) U/L Total Protein (6.4-8.2) g/dL Albumin (3.4-5.0) g/dL Globulin (2.3-3.5) g/dL Albumin/Globulin Ratio (1.2-2.2) Result Diagrams: 01/31/21 13:34 01/31/21 13:34 Sepsis Event Note - Evaluation Sepsis Screening Result: No Definite Risk - Focused Exam Vital Signs: Vital Signs Temp Pulse Resp BP Pulse Ox 01/31/21 13:40 36.6 C 68 16 105/57 L 100 01/31/21 13:08 36.6 C 68 16 105/57 L 100 *Q Meaningful Use (ADM) - VTE *Q VTE Pharmacological Contraindications *Q: Active Hemorrhage - VTE Risk Assess *Q Each Risk Factor Represents 1 Point: Age 41 - 59 years, Obesity ( BMI > 25 kg/m2) Total Score 1 Point Risk Factors: 2 Each Risk Factor Represents 2 Points: None Total Score 2 Point Risk Factors: 0 Each Risk Factor Represents 3 Points: None Total Score 3 Point Risk Factors: 0 Each Risk Factor Represents 5 Points: None Total Score 5 Point Risk Factors: 0 Venous Thromboembolism Risk Factor Score *Q: 2 - Problem List (1) Acute lower gastrointestinal hemorrhage SNOMED Code(s): 43375669 ICD Code: K92.2 - GASTROINTESTINAL HEMORRHAGE, UNSPECIFIED Status: Acute Current Visit: Yes (2) Anemia due to blood loss, acute SNOMED Code(s): 274159270 ICD Code: D62 - ACUTE POSTHEMORRHAGIC ANEMIA Status: Acute Current Visit: Yes (3) Hx of gastric bypass SNOMED Code(s): 621521793 ICD Code: Z98.84 - BARIATRIC SURGERY STATUS Status: Chronic Current Visit: Yes Problem List Initiated/Reviewed/Updated: Yes Orders Last 24hrs: Active Orders 24 hr Category Date Time Status Patient Status Manage Transfer [TRANSFER] Routine ADT 01/31/21 16:22 Ordered Peripheral IV Care [RC] . DIRECTED Care 01/31/21 13:17 Active RED BLOOD CELLS LP [BBK] Stat Lab 01/31/21 16:05 Received TYPE AND SCREEN [BBK] Stat Lab 01/31/21 16:05 Received Lactated Ringers [Ringers, Lactated] 1,000 ml Med 01/31/21 13:30 Active IV ASDIRECTED Sodium Chloride 0.9% [Saline Flush] Med 01/31/21 13:16 Active 10 ml FLUSH ASDIRECTED PRN Peripheral IV Insertion Adult [OM.PC] Urgent Oth 01/31/21 13:16 Ordered Resuscitation Status Routine Resus Stat 01/31/21 16:24 Ordered Medication Orders Lactated Ringer's (Ringers, Lactated) 1,000 mls @ 125 mls/hr IV ASDIRECTED ERLINDA Last Admin: 01/31/21 14:37 Dose: 125 mls/hr Documented by: NICOLE Sodium Chloride (Sodium Chloride 0.9% 10 Ml Syringe) 10 ml FLUSH ASDIRECTED PRN PRN Reason: Keep Vein Open Assessment/Plan Comment:: ASSESSMENT AND PLAN - Acute lower gastrointestinal hemorrhage-complicated by anemia due to blood loss. History of diverticular disease and multiple episodes of hemorrhage. Surgical team was consulted and they requested 1 unit of blood be transfused. Plan is for upper endoscopy tomorrow and potentially colonoscopy after that depending on results and clinical stability. Segmental resection for current bleeding has been discussed in the past. -IV PPI overnight -IV fluids -Transfuse 1 unit of blood per surgical request -Hemoglobin in the morning -Upper endoscopy in the morning -consider colonoscopy -Consider CT scan if abdominal pain worsens History of gastric bypass surgery-completed in 2007. Maintenance issues - -DVT prophylaxis-mechanical -GI prophylaxis-PPI -Nutrition-clear liquids this evening, nothing by mouth after midnight -[place] catheter-not indicated CODE STATUS -full code Admission justification -this patient will be admitted for inpatient services and is medically appropriate meeting medical necessity for inpatient admission as outlined in my documentation. I reasonably expect the patient will require inpatient services that span a period time over 2 midnights. I reasonably expect this patient to be discharged or transferred within 96 hours after admission to the [facility]. Disposition -I anticipate discharge home after the hospital stay Primary care- [facility] Eriberto Esquivel M.D. - Mortality Measure Prognosis:: Good
[2021-01-31] MEDS ORDERED: Acetaminophen 325 MG Tab PO PRN (16:50)
[2021-01-31] MEDS ORDERED: Magnesium Hydroxide 400 MG/5 ML Susp 30 ML Cup PO PRN (16:50)
[2021-01-31] MEDS ORDERED: LORazepam 2 MG/ML SDV IVPUSH PRN (16:50)
[2021-01-31] MEDS ORDERED: oxyCODONE 5 MG Tab PO PRN (16:50)
[2021-01-31] MEDS ORDERED: Ondansetron 4 MG/2 ML SDV IV PRN (16:50)
[2021-01-31] MEDS ORDERED: Albuterol 0.083% 2.5 MG/3 ML Neb Soln NEB PRN (16:50)
[2021-01-31] MEDS ORDERED: Melatonin 3 MG Tab PO PRN (16:50)
[2021-01-31] MEDS ORDERED: Ondansetron 4 MG Tab.DIS PO PRN (16:50)
[2021-01-31] MEDS ORDERED: HYDROmorphone 0.5 MG/0.5 ML Syringe IVPUSH PRN (16:52)
[2021-01-31] MEDS: Pantoprazole 40 MG Vial IV SCH (18:30)
[2021-01-31] MEDS: Montelukast 10 MG Tab PO SCH (21:51)
[2021-01-31] MEDS: Formoterol/Mometasone 200-5 MCG 8.8 GM Inhaler IH SCH (21:51)
[2021-01-31] MEDS: Pravastatin 20 MG Tab PO SCH (21:51)
[2021-02-01] MEDS: Lactated Ringers 1,000 ML IV SCH ×3 (00:51→18:13)
[2021-02-01] MEDS: Pantoprazole 40 MG Vial IV SCH ×2 (06:04→18:13)
[2021-02-01] MEDS: Formoterol/Mometasone 200-5 MCG 8.8 GM Inhaler IH SCH ×2 (07:23→21:22)
[2021-02-01] MEDS ORDERED: Non-Formulary Medication 1 Each (Levothyroxine [Levothyroxine] 125 MCG Tablet) PO SCH (07:30)
[2021-02-01] MEDS: Levothyroxine 100 MCG, Levothyroxine 25 MCG PO SCH ×4 (07:43→15:13)
[2021-02-01] MEDS: Loratadine 10 MG Tab PO SCH ×2 (08:35→15:13)
[2021-02-01] MEDS: Cyanocobalamin (Vitamin B12) 1,000 MCG Tab PO SCH ×2 (08:36→15:13)
[2021-02-01] MEDS: Aspirin 81 MG Tab.EC PO SCH (08:36)
[2021-02-01] MEDS ORDERED: Propofol 200 MG/20 ML SDV ONE (08:44)
[2021-02-01] MEDS ORDERED: fentaNYL 100 MCG/2 ML SDV ONE (08:44)
--- NOTE | 2021-02-01 10:11 | PCM.PN ---
- General Info Date of Service: 02/01/21 Subjective Update: No acute events overnight following admission. She has not had any additional episodes of blood in her stool. No abdominal pain or nausea. Hemoglobin this morning had dropped further despite transfusion yesterday and was down to 7.4. Gastroscopy is planned later this morning. Functional Status: Reports: Pain Controlled, Tolerating Diet - Review of Systems Gastrointestinal: Denies: Hematochezia - Patient Data Vitals - Most Recent: Last Vital Signs Temp 36.8 C 02/01/21 09:40 Pulse 61 02/01/21 07:40 Resp 16 02/01/21 09:40 BP 113/51 L 02/01/21 09:40 Pulse Ox 95 02/01/21 09:40 Weight - Most Recent: 79.3 kg I&O - Last 24 Hours: Intake & Output 01/31/21 02/01/21 02/01/21 22:59 06:59 14:59 Intake Total 780 1617 0 Output Total 400 700 Balance 380 917 0 Lab Results Last 24 Hours: Laboratory Results - last 24 hr 01/31/21 01/31/21 01/31/21 Range/Units 13:34 13:34 13:34 WBC (4.5-11.0) K/uL RBC (3.30-5.50) M/uL Hgb (12.0-15.0) g/dL Hct (36.0-48.0) % MCV (80-98) fL MCH (27-31) pg MCHC (32-36) % Plt Count (150-400) K/uL Neut % (Auto) (36-66) % Lymph % (Auto) (24-44) % [place] % (Auto) (2-6) % Eos % (Auto) (2-4) % Baso % (Auto) (0-1) % PT 10.5 (9.5-12.0) sec INR 0.96 (0.80-1.20) Sodium 143 (140-148) mmol/L Potassium 4.0 (3.6-5.2) mmol/L Chloride 104 (100-108) mmol/L Carbon Dioxide 30 (21-32) mmol/L Anion Gap 9.5 (5.0-14.0) mmol/L BUN 29 H D (7-18) mg/dL Creatinine 1.1 H (0.6-1.0) mg/dL Est Cr Clr Drug Dosing 56.19 mL/min Estimated GFR (MDRD) 52 L (>60) Glucose 119 H (74-106) mg/dL Lactic Acid (0.4-2.0) mmol/L Calcium 8.1 L (8.5-10.1) mg/dL Magnesium (1.8-2.4) mg/dL Ferritin (8-388) ng/ml Total Bilirubin 0.4 D (0.2-1.0) mg/dL AST 18 (15-37) U/L ALT 20 (12-78) U/L Alkaline Phosphatase 78 (46-116) U/L Total Protein 6.2 L (6.4-8.2) g/dL Albumin 3.3 L (3.4-5.0) g/dL Globulin 2.9 (2.3-3.5) g/dL Albumin/Globulin Ratio 1.1 L (1.2-2.2) Vitamin B12 (193-986) pg/ml Folate (8.6-58.9) ng/ml Blood Type Gel Antibody Screen Crossmatch 01/31/21 01/31/21 02/01/21 Range/Units 13:34 16:05 05:25 WBC 3.9 L (4.5-11.0) K/uL RBC 2.59 L (3.30-5.50) M/uL Hgb 7.4 L D (12.0-15.0) g/dL Hct 25.0 L (36.0-48.0) % MCV 97 (80-98) fL MCH 29 (27-31) pg MCHC 30 L (32-36) % Plt Count 201 (150-400) K/uL Neut % (Auto) (36-66) % Lymph % (Auto) (24-44) % [place] % (Auto) (2-6) % Eos % (Auto) (2-4) % Baso % (Auto) (0-1) % PT (9.5-12.0) sec INR (0.80-1.20) Sodium (140-148) mmol/L Potassium (3.6-5.2) mmol/L Chloride (100-108) mmol/L Carbon Dioxide (21-32) mmol/L Anion Gap (5.0-14.0) mmol/L BUN (7-18) mg/dL Creatinine (0.6-1.0) mg/dL Est Cr Clr Drug Dosing mL/min Estimated GFR (MDRD) (>60) Glucose (74-106) mg/dL Lactic Acid 0.9 (0.4-2.0) mmol/L Calcium (8.5-10.1) mg/dL Magnesium (1.8-2.4) mg/dL Ferritin (8-388) ng/ml Total Bilirubin (0.2-1.0) mg/dL AST (15-37) U/L ALT (12-78) U/L Alkaline Phosphatase (46-116) U/L Total Protein (6.4-8.2) g/dL Albumin (3.4-5.0) g/dL Globulin (2.3-3.5) g/dL Albumin/Globulin Ratio (1.2-2.2) Vitamin B12 (193-986) pg/ml Folate (8.6-58.9) ng/ml Blood Type O POSITIVE Gel Antibody Screen Negative Crossmatch See Detail 02/01/21 02/01/21 Range/Units 05:25 07:06 WBC (4.5-11.0) K/uL RBC (3.30-5.50) M/uL Hgb (12.0-15.0) g/dL Hct (36.0-48.0) % MCV (80-98) fL MCH (27-31) pg MCHC (32-36) % Plt Count (150-400) K/uL Neut % (Auto) (36-66) % Lymph % (Auto) (24-44) % [place] % (Auto) (2-6) % Eos % (Auto) (2-4) % Baso % (Auto) (0-1) % PT (9.5-12.0) sec INR (0.80-1.20) Sodium 144 (140-148) mmol/L Potassium 3.6 (3.6-5.2) mmol/L Chloride 108 (100-108) mmol/L Carbon Dioxide 29 (21-32) mmol/L Anion Gap 6.9 (5.0-14.0) mmol/L BUN 19 H (7-18) mg/dL Creatinine 0.8 (0.6-1.0) mg/dL Est Cr Clr Drug Dosing 77.06 mL/min Estimated GFR (MDRD) > 60 (>60) Glucose 90 (74-106) mg/dL Lactic Acid (0.4-2.0) mmol/L Calcium 7.9 L (8.5-10.1) mg/dL Magnesium 1.9 (1.8-2.4) mg/dL Ferritin 27 (8-388) ng/ml Total Bilirubin (0.2-1.0) mg/dL AST (15-37) U/L ALT (12-78) U/L Alkaline Phosphatase (46-116) U/L Total Protein (6.4-8.2) g/dL Albumin (3.4-5.0) g/dL Globulin (2.3-3.5) g/dL Albumin/Globulin Ratio (1.2-2.2) Vitamin B12 > 2000 H (193-986) pg/ml Folate 17.6 (8.6-58.9) ng/ml Blood Type Gel Antibody Screen Crossmatch Med Orders - Current: Current Medications Acetaminophen (Acetaminophen 325 Mg Tab) 650 mg PO Q4H PRN PRN Reason: Pain (Mild 1-3)/fever Albuterol (Albuterol 0.083% 2.5 Mg/3 Ml Neb Soln) 2.5 mg NEB Q4H PRN PRN Reason: Shortness Of Breath/wheezing Aspirin (Aspirin 81 Mg Tab.Ec) 81 mg PO DAILY [facility] Last Admin: 02/01/21 08:36 Dose: Not Given Documented by: Cyanocobalamin (Cyanocobalamin (Vitamin B12) 1,000 Mcg Tab) 1,000 mcg PO DAILY [facility] Last Admin: 02/01/21 08:36 Dose: Not Given Documented by: Hydromorphone HCl (Hydromorphone 0.5 Mg/0.5 Ml Syringe) 0.5 mg IVPUSH Q2H PRN PRN Reason: Pain (severe 7-10) Lactated Ringer's (Ringers, Lactated) 1,000 mls @ 125 mls/hr IV ASDIRECTED [facility] Last Admin: 02/01/21 00:51 Dose: 125 mls/hr Documented by: Levothyroxine Sodium 100 mcg/ (Levothyroxine Sodium 25 mcg) 125 mcg PO DAILY@0730 [facility] Last Admin: 02/01/21 07:43 Dose: Not Given Documented by: Loratadine (Loratadine 10 Mg Tab) 10 mg PO DAILY [facility] Last Admin: 02/01/21 08:35 Dose: Not Given Documented by: Lorazepam (Lorazepam 2 Mg/Ml Sdv) 0.5 mg IVPUSH Q4H PRN PRN Reason: Nausea/Vomiting Magnesium Hydroxide (Magnesium Hydroxide 400 Mg/5 Ml Susp 30 Ml Cup) 30 ml PO Q12H PRN PRN Reason: Constipation Melatonin (Melatonin 3 Mg Tab) 9 mg PO BEDTIME PRN PRN Reason: Sleep Mometasone Furoate/Formoterol Fumar (Formoterol/Mometasone 200-5 Mcg 8.8 Gm Inhaler) 2 puff IH BIDRT [facility] Last Admin: 02/01/21 07:23 Dose: 2 puff Documented by: Montelukast Sodium (Montelukast 10 Mg Tab) 10 mg PO BEDTIME [facility] Last Admin: 01/31/21 21:51 Dose: 10 mg Documented by: Ondansetron HCl (Ondansetron 4 Mg/2 Ml Sdv) 4 mg IV Q6H PRN PRN Reason: Nausea/Vomiting Ondansetron HCl (Ondansetron 4 Mg Tab.Dis) 4 mg PO Q6H PRN PRN Reason: Nausea able to take PO Oxycodone HCl (Oxycodone 5 Mg Tab) 5 mg PO Q4H PRN PRN Reason: Pain (moderate 4-6) Pantoprazole Sodium (Pantoprazole 40 Mg Vial) 40 mg IV Q12H [facility] Last Admin: 02/01/21 06:04 Dose: 40 mg Documented by: Pravastatin Sodium (Pravastatin 20 Mg Tab) 20 mg PO BEDTIME [facility] Last Admin: 01/31/21 21:51 Dose: 20 mg Documented by: Senna/Docusate Sodium (Docusate Sodium/Sennosides 50-8.6 Mg Tab) 1 tab PO BID PRN PRN Reason: Constipation Sodium Chloride (Sodium Chloride 0.9% 10 Ml Syringe) 10 ml FLUSH ASDIRECTED PRN PRN Reason: Keep Vein Open Discontinued Medications Fentanyl (Fentanyl 100 Mcg/2 Ml Sdv) Confirm Administered Dose 100 mcg .ROUTE .STK-MED ONE Stop: 02/01/21 08:45 Propofol (Propofol 200 Mg/20 Ml Sdv) Confirm Administered Dose 200 mg .ROUTE .STK-MED ONE Stop: 02/01/21 08:45 - Exam Quality Assessment: No: Supplemental Oxygen General: Alert, Oriented, Cooperative, No Acute Distress Lungs: Normal Respiratory Effort Cardiovascular: Regular Rate, Regular Rhythm GI/Abdominal Exam: Soft, No Distention Extremities: No Pedal Edema Skin: Warm, Dry Psy/Mental Status: Alert, Normal Affect - Patient Data Lab Results Last 24 hrs: Laboratory Results - last 24 hr 01/31/21 01/31/21 01/31/21 Range/Units 13:34 13:34 13:34 WBC (4.5-11.0) K/uL RBC (3.30-5.50) M/uL Hgb (12.0-15.0) g/dL Hct (36.0-48.0) % MCV (80-98) fL MCH (27-31) pg MCHC (32-36) % Plt Count (150-400) K/uL Neut % (Auto) (36-66) % Lymph % (Auto) (24-44) % [place] % (Auto) (2-6) % Eos % (Auto) (2-4) % Baso % (Auto) (0-1) % PT 10.5 (9.5-12.0) sec INR 0.96 (0.80-1.20) Sodium 143 (140-148) mmol/L Potassium 4.0 (3.6-5.2) mmol/L Chloride 104 (100-108) mmol/L Carbon Dioxide 30 (21-32) mmol/L Anion Gap 9.5 (5.0-14.0) mmol/L BUN 29 H D (7-18) mg/dL Creatinine 1.1 H (0.6-1.0) mg/dL Est Cr Clr Drug Dosing 56.19 mL/min Estimated GFR (MDRD) 52 L (>60) Glucose 119 H (74-106) mg/dL Lactic Acid (0.4-2.0) mmol/L Calcium 8.1 L (8.5-10.1) mg/dL Magnesium (1.8-2.4) mg/dL Ferritin (8-388) ng/ml Total Bilirubin 0.4 D (0.2-1.0) mg/dL AST 18 (15-37) U/L ALT 20 (12-78) U/L Alkaline Phosphatase 78 (46-116) U/L Total Protein 6.2 L (6.4-8.2) g/dL Albumin 3.3 L (3.4-5.0) g/dL Globulin 2.9 (2.3-3.5) g/dL Albumin/Globulin Ratio 1.1 L (1.2-2.2) Vitamin B12 (193-986) pg/ml Folate (8.6-58.9) ng/ml Blood Type Gel Antibody Screen Crossmatch 01/31/21 01/31/21 02/01/21 Range/Units 13:34 16:05 05:25 WBC 3.9 L (4.5-11.0) K/uL RBC 2.59 L (3.30-5.50) M/uL Hgb 7.4 L D (12.0-15.0) g/dL Hct 25.0 L (36.0-48.0) % MCV 97 (80-98) fL MCH 29 (27-31) pg MCHC 30 L (32-36) % Plt Count 201 (150-400) K/uL Neut % (Auto) (36-66) % Lymph % (Auto) (24-44) % [place] % (Auto) (2-6) % Eos % (Auto) (2-4) % Baso % (Auto) (0-1) % PT (9.5-12.0) sec INR (0.80-1.20) Sodium (140-148) mmol/L Potassium (3.6-5.2) mmol/L Chloride (100-108) mmol/L Carbon Dioxide (21-32) mmol/L Anion Gap (5.0-14.0) mmol/L BUN (7-18) mg/dL Creatinine (0.6-1.0) mg/dL Est Cr Clr Drug Dosing mL/min Estimated GFR (MDRD) (>60) Glucose (74-106) mg/dL Lactic Acid 0.9 (0.4-2.0) mmol/L Calcium (8.5-10.1) mg/dL Magnesium (1.8-2.4) mg/dL Ferritin (8-388) ng/ml Total Bilirubin (0.2-1.0) mg/dL AST (15-37) U/L ALT (12-78) U/L Alkaline Phosphatase (46-116) U/L Total Protein (6.4-8.2) g/dL Albumin (3.4-5.0) g/dL Globulin (2.3-3.5) g/dL Albumin/Globulin Ratio (1.2-2.2) Vitamin B12 (193-986) pg/ml Folate (8.6-58.9) ng/ml Blood Type O POSITIVE Gel Antibody Screen Negative Crossmatch See Detail 02/01/21 02/01/21 Range/Units 05:25 07:06 WBC (4.5-11.0) K/uL RBC (3.30-5.50) M/uL Hgb (12.0-15.0) g/dL Hct (36.0-48.0) % MCV (80-98) fL MCH (27-31) pg MCHC (32-36) % Plt Count (150-400) K/uL Neut % (Auto) (36-66) % Lymph % (Auto) (24-44) % [place] % (Auto) (2-6) % Eos % (Auto) (2-4) % Baso % (Auto) (0-1) % PT (9.5-12.0) sec INR (0.80-1.20) Sodium 144 (140-148) mmol/L Potassium 3.6 (3.6-5.2) mmol/L Chloride 108 (100-108) mmol/L Carbon Dioxide 29 (21-32) mmol/L Anion Gap 6.9 (5.0-14.0) mmol/L BUN 19 H (7-18) mg/dL Creatinine 0.8 (0.6-1.0) mg/dL Est Cr Clr Drug Dosing 77.06 mL/min Estimated GFR (MDRD) > 60 (>60) Glucose 90 (74-106) mg/dL Lactic Acid (0.4-2.0) mmol/L Calcium 7.9 L (8.5-10.1) mg/dL Magnesium 1.9 (1.8-2.4) mg/dL Ferritin 27 (8-388) ng/ml Total Bilirubin (0.2-1.0) mg/dL AST (15-37) U/L ALT (12-78) U/L Alkaline Phosphatase (46-116) U/L Total Protein (6.4-8.2) g/dL Albumin (3.4-5.0) g/dL Globulin (2.3-3.5) g/dL Albumin/Globulin Ratio (1.2-2.2) Vitamin B12 > 2000 H (193-986) pg/ml Folate 17.6 (8.6-58.9) ng/ml Blood Type Gel Antibody Screen Crossmatch Result Diagrams: 02/01/21 15:00 02/01/21 05:25 Sepsis Event Note - Evaluation Sepsis Screening Result: No Definite Risk - Focused Exam Vital Signs: Vital Signs Temp Temp Pulse Resp BP Pulse Ox 02/01/21 09:40 36.8 C 16 113/51 L 95 02/01/21 09:20 37.3 C 17 103/31 L 96 02/01/21 08:40 37.3 C 12 106/64 94 L 02/01/21 08:25 36.9 C 11 L 107/54 L 97 02/01/21 08:10 37.2 C 16 90/57 L 96 02/01/21 07:55 36.6 C 13 104/52 L 98 02/01/21 07:40 37.4 C 61 14 104/39 L 96 02/01/21 03:00 36.4 C 17 114/42 L 96 01/31/21 22:45 37.0 C 12 111/43 L 97 01/31/21 22:30 36.9 C 72 15 106/51 L 95 - Problem List & Annotations (1) Acute lower gastrointestinal hemorrhage SNOMED Code(s): 84655849 Code(s): K92.2 - GASTROINTESTINAL HEMORRHAGE, UNSPECIFIED Status: Acute Current Visit: Yes (2) Anemia due to blood loss, acute SNOMED Code(s): 898804406 Code(s): D62 - ACUTE POSTHEMORRHAGIC ANEMIA Status: Acute Current Visit: Yes (3) Hx of gastric bypass SNOMED Code(s): 550438788 Code(s): Z98.84 - BARIATRIC SURGERY STATUS Status: Chronic Current Visit: Yes - Problem List Review Problem List Initiated/Reviewed/Updated: Yes - My Orders Last 24 Hours: My Active Orders 01/31/21 16:24 Resuscitation Status Routine 01/31/21 16:50 Acetaminophen [TylenoL] 650 mg PO Q4H PRN Albuterol [Proventil Neb Soln] 2.5 mg NEB Q4H PRN Docusate Sodium/Sennosides [Senna Plus] 1 tab PO BID PRN LORazepam [Ativan] 0.5 mg IVPUSH Q4H PRN Magnesium Hydroxide [Milk of Magnesia] 30 ml PO Q12H PRN Melatonin 9 mg PO BEDTIME PRN Ondansetron [Zofran ODT] 4 mg PO Q6H PRN Ondansetron [Zofran] 4 mg IV Q6H PRN oxyCODONE 5 mg PO Q4H PRN 01/31/21 16:50 Patient Status [ADT] Routine Antiembolic Devices [RC] .Routine Cardiac Monitoring [RC] Q6H Intake and Output [RC] QSHIFT Notify Provider Consults [RC] ASDIRECTED Notify Provider Vital Signs [RC] ASDIRECTED Oxygen Therapy [RC] PRN RT Aerosol Therapy [RC] ASDIRECTED Up With Assistance [RC] ASDIRECTED Vital Signs [RC] Q4H Consult to Physician [CONS] Routine Sequential Compression Device [OM.PC] Routine Transfuse Red Blood Cells [COMM] Routine VTE Pharmacological Contraindications [AST] Routine 01/31/21 16:52 HYDROmorphone [Dilaudid] 0.5 mg IVPUSH Q2H PRN 01/31/21 Dinner Nothing per Oral After Midnight Diet [DIET] 01/31/21 18:00 Pantoprazole [ProTONIX IV] 40 mg IV Q12H 01/31/21 21:00 Mometasone/Formoterol [Dulera 200-5 MCG] 2 puff IH BIDRT Montelukast [Singulair] 10 mg PO BEDTIME Pravastatin [Pravachol] 20 mg PO BEDTIME 02/01/21 06:48 Transfuse Red Blood Cells [COMM] Urgent 02/01/21 07:30 Levothyroxine [Synthroid] 125 mcg PO DAILY@0730 02/01/21 09:00 Aspirin [Halfprin] 81 mg PO DAILY Cyanocobalamin (Vitamin B12) [Vitamin B12] 1,000 mcg PO DAILY Loratadine [Claritin] 10 mg PO DAILY 02/01/21 15:00 HGB [HEMOGLOBIN] [HEME] Timed 02/02/21 05:00 BASIC METABOLIC PANEL,BMP [CHEM] Timed CBC W/O DIFF,HEMOGRAM [HEME] Timed (1) - Plan Plan:: ASSESSMENT AND PLAN - Acute lower gastrointestinal hemorrhage-complicated by anemia due to blood loss. History of diverticular disease and multiple episodes of hemorrhage. EGD planned today. No more evidence of bleeding overnight. -Saline lock IV -Transfuse 1 unit of blood with further drop in hemoglobin -Hemoglobin this afternoon and in the morning -Upper endoscopy later this morning -consider colonoscopy -Consider CT scan if abdominal pain worsens History of gastric bypass surgery-completed in 2007. Maintenance issues - -DVT prophylaxis-mechanical -GI prophylaxis-PPI -Nutrition-n.p.o. until after her procedure Disposition -I anticipate discharge home after the hospital stay Primary care- [facility] Eriberto Esquivel M.D.
[2021-02-01] MEDS ORDERED: Midazolam 1 MG/ML 2 ML SDV ONE (12:34)
--- NOTE | 2021-02-01 18:49 | CRLCT ---
For Patients: As a result of the Cures Act, medical imaging exams and procedure reports are released immediately into your electronic medical record. You may view this report before your referring provider. If you have questions, please contact your health care provider. INDICATION: GI bleed TECHNIQUE: CT abdomen and pelvis acquired without IV contrast. COMPARISON: None FINDINGS: Lower chest: Unremarkable. Liver: Unremarkable. Spleen: Unremarkable. Pancreas: Unremarkable. Gallbladder and bile ducts: Cholelithiasis. Adrenal glands: Unremarkable. Kidneys: Nonobstructive left nephrolithiasis. Small calcifications in the right renal parenchyma. GI tract: Status post gastric bypass procedure. Colonic diverticulosis. Appendix is not seen. Vascular structures: Unremarkable. Lymph nodes: Unremarkable. Miscellaneous: Small right upper quadrant ventral hernia containing fat and a small amount of fluid. No free air or significant free fluid. Pelvic Organs: Unremarkable. Bones: Unremarkable for age. IMPRESSION: No acute intra-abdominal process identified. Colonic diverticulosis. Cholelithiasis. Nonobstructive left nephrolithiasis. Status post gastric bypass procedure. Please note that all CT scans at this facility use dose modulation, iterative reconstruction, and/or weight-based dosing when appropriate to reduce radiation dose to as low as reasonably achievable. Dictated by Margoth Vasquez MD @ 02/01/2021 6:48:[address] Margoth Vasquez @ Feb 01 2021 6:48PM
[2021-02-01] MEDS ORDERED: Ondansetron 4 MG/2 ML SDV IV PRN (20:37)
[2021-02-01] MEDS ORDERED: Ondansetron 4 MG Tab.DIS PO PRN (20:37)
[2021-02-01] MEDS: Pravastatin 20 MG Tab PO SCH (21:23)
[2021-02-01] MEDS: Montelukast 10 MG Tab PO SCH (21:23)
[2021-02-02] MEDS: Pantoprazole 40 MG Vial IV SCH ×2 (06:00→17:07)
[2021-02-02] MEDS: Formoterol/Mometasone 200-5 MCG 8.8 GM Inhaler IH SCH ×2 (07:19→21:02)
[2021-02-02] MEDS: Lactated Ringers 1,000 ML IV SCH (08:00)
[2021-02-02] MEDS: Levothyroxine 100 MCG, Levothyroxine 25 MCG PO SCH ×2 (08:40)
[2021-02-02] MEDS: Cyanocobalamin (Vitamin B12) 1,000 MCG Tab PO SCH (08:40)
[2021-02-02] MEDS: Loratadine 10 MG Tab PO SCH (08:40)
[2021-02-02] MEDS: Aspirin 81 MG Tab.EC PO SCH (08:40)
--- NOTE | 2021-02-02 08:51 | PCM.PN ---
- General Info Date of Service: 02/02/21 Subjective Update: Yesterday afternoon and evening the patient developed several episodes of hematochezia with maroonish colored stool passed. This was a fairly large quantity. Recheck hemoglobin last night was down to 7.2 and she did receive a third unit of blood via transfusion. This morning her hemoglobin was 7.7 and she received a fourth unit of blood. She is feeling better today with less lightheadedness. She does not complain of any abdominal pain. She has not pas sed any blood since last night. She has not had any fevers. She will be starting a colonoscopy prep with the plan to have a colonoscopy tomorrow morning. Blood pressures are on the lower side of normal but stable. Functional Status: Reports: Pain Controlled, Tolerating Diet - Review of Systems Gastrointestinal: Reports: Hematochezia - Patient Data Vitals - Most Recent: Last Vital Signs Temp 36.6 C 02/02/21 08:00 Pulse 60 02/02/21 08:00 Resp 14 02/02/21 08:00 BP 110/59 L 02/02/21 08:00 Pulse Ox 97 02/02/21 08:00 Weight - Most Recent: 79.3 kg I&O - Last 24 Hours: Intake & Output 02/01/21 02/02/21 02/02/21 22:59 06:59 14:59 Intake Total 972 1570 Output Total 575 350 Balance 397 1220 Lab Results Last 24 Hours: Laboratory Results - last 24 hr 01/31/21 02/01/21 02/01/21 Range/Units 16:05 12:45 15:00 WBC (4.5-11.0) K/uL RBC (3.30-5.50) M/uL Hgb 8.7 L (12.0-15.0) g/dL Hct 27.8 L (36.0-48.0) % MCV (80-98) fL MCH (27-31) pg MCHC (32-36) % Plt Count (150-400) K/uL Sodium (140-148) mmol/L Potassium (3.6-5.2) mmol/L Chloride (100-108) mmol/L Carbon Dioxide (21-32) mmol/L Anion Gap (5.0-14.0) mmol/L BUN (7-18) mg/dL Creatinine (0.6-1.0) mg/dL Est Cr Clr Drug Dosing mL/min Estimated GFR (MDRD) (>60) Glucose (74-106) mg/dL Calcium (8.5-10.1) mg/dL Phosphorus (2.5-4.9) mg/dL Magnesium (1.8-2.4) mg/dL Total Bilirubin (0.2-1.0) mg/dL AST (15-37) U/L ALT (12-78) U/L Alkaline Phosphatase (46-116) U/L Total Protein (6.4-8.2) g/dL Albumin (3.4-5.0) g/dL Globulin (2.3-3.5) g/dL Albumin/Globulin Ratio (1.2-2.2) Blood Type O POSITIVE Gel Antibody Screen Negative Crossmatch See Detail 02/01/21 02/02/21 02/02/21 Range/Units 20:00 04:00 05:00 WBC 4.6 (4.5-11.0) K/uL RBC 2.60 L (3.30-5.50) M/uL Hgb 7.2 L 7.7 L (12.0-15.0) g/dL Hct 24.4 L (36.0-48.0) % MCV 94 (80-98) fL MCH 30 (27-31) pg MCHC 32 (32-36) % Plt Count 193 (150-400) K/uL Sodium 146 (140-148) mmol/L Potassium 4.0 (3.6-5.2) mmol/L Chloride 110 H (100-108) mmol/L Carbon Dioxide 27 (21-32) mmol/L Anion Gap 13.0 (5.0-14.0) mmol/L BUN 17 (7-18) mg/dL Creatinine 0.8 (0.6-1.0) mg/dL Est Cr Clr Drug Dosing 77.06 mL/min Estimated GFR (MDRD) > 60 (>60) Glucose 91 (74-106) mg/dL Calcium 7.5 L (8.5-10.1) mg/dL Phosphorus 4.0 (2.5-4.9) mg/dL Magnesium 1.9 (1.8-2.4) mg/dL Total Bilirubin 0.5 (0.2-1.0) mg/dL AST 16 (15-37) U/L ALT 17 (12-78) U/L Alkaline Phosphatase 52 (46-116) U/L Total Protein 4.2 L (6.4-8.2) g/dL Albumin 2.1 L (3.4-5.0) g/dL Globulin 2.1 L (2.3-3.5) g/dL Albumin/Globulin Ratio 1.0 L (1.2-2.2) Blood Type Gel Antibody Screen Crossmatch Med Orders - Current: Current Medications Acetaminophen (Acetaminophen 325 Mg Tab) 650 mg PO Q4H PRN PRN Reason: Pain (Mild 1-3)/fever Albuterol (Albuterol 0.083% 2.5 Mg/3 Ml Neb Soln) 2.5 mg NEB Q4H PRN PRN Reason: Shortness Of Breath/wheezing Aspirin (Aspirin 81 Mg Tab.Ec) 81 mg PO DAILY [facility] Last Admin: 02/02/21 08:40 Dose: Not Given Documented by: Bisacodyl (Bisacodyl 5 Mg Tab) 10 mg PO ONETIME ONE Stop: 02/02/21 09:01 Last Admin: 02/02/21 08:40 Dose: 10 mg Documented by: Bisacodyl (Bisacodyl 5 Mg Tab) 10 mg PO ONETIME ONE Stop: 02/02/21 20:01 Cyanocobalamin (Cyanocobalamin (Vitamin B12) 1,000 Mcg Tab) 1,000 mcg PO DAILY [facility] Last Admin: 02/02/21 08:40 Dose: 1,000 mcg Documented by: Hydromorphone HCl (Hydromorphone 0.5 Mg/0.5 Ml Syringe) 0.5 mg IVPUSH Q2H PRN PRN Reason: Pain (severe 7-10) Lactated Ringer's (Ringers, Lactated) 1,000 mls @ 75 mls/hr IV ASDIRECTED [facility] Last Admin: 02/02/21 08:00 Dose: 75 mls/hr Documented by: Levothyroxine Sodium 100 mcg/ (Levothyroxine Sodium 25 mcg) 125 mcg PO DAILY@0730 [facility] Last Admin: 02/02/21 08:40 Dose: 125 mcg Documented by: Loratadine (Loratadine 10 Mg Tab) 10 mg PO DAILY [facility] Last Admin: 02/02/21 08:40 Dose: 10 mg Documented by: Lorazepam (Lorazepam 2 Mg/Ml Sdv) 0.5 mg IVPUSH Q4H PRN PRN Reason: Nausea/Vomiting Magnesium Hydroxide (Magnesium Hydroxide 400 Mg/5 Ml Susp 30 Ml Cup) 30 ml PO Q12H PRN PRN Reason: Constipation Melatonin (Melatonin 3 Mg Tab) 9 mg PO BEDTIME PRN PRN Reason: Sleep Mometasone Furoate/Formoterol Fumar (Formoterol/Mometasone 200-5 Mcg 8.8 Gm Inhaler) 2 puff IH BIDRT [facility] Last Admin: 02/02/21 07:19 Dose: 2 puff Documented by: Montelukast Sodium (Montelukast 10 Mg Tab) 10 mg PO BEDTIME [facility] Last Admin: 02/01/21 21:23 Dose: 10 mg Documented by: Ondansetron HCl (Ondansetron 4 Mg Tab.Dis) 4 mg PO Q4H PRN PRN Reason: Nausea able to take PO Last Admin: 02/01/21 21:22 Dose: 4 mg Documented by: Ondansetron HCl (Ondansetron 4 Mg/2 Ml Sdv) 4 mg IV Q4H PRN PRN Reason: Nausea/Vomiting Oxycodone HCl (Oxycodone 5 Mg Tab) 5 mg PO Q4H PRN PRN Reason: Pain (moderate 4-6) Pantoprazole Sodium (Pantoprazole 40 Mg Vial) 40 mg IV Q12H [facility] Last Admin: 02/01/21 18:13 Dose: 40 mg Documented by: Polyethylene Glycol (Polyethylene Glycol 3350 Powder 238 Gm Bot) 238 gm PO ONETIME ONE Stop: 02/02/21 17:01 Pravastatin Sodium (Pravastatin 20 Mg Tab) 20 mg PO BEDTIME [facility] Last Admin: 02/01/21 21:23 Dose: 20 mg Documented by: Senna/Docusate Sodium (Docusate Sodium/Sennosides 50-8.6 Mg Tab) 1 tab PO BID PRN PRN Reason: Constipation Sodium Chloride (Sodium Chloride 0.9% 10 Ml Syringe) 10 ml FLUSH ASDIRECTED PRN PRN Reason: Keep Vein Open Discontinued Medications Fentanyl (Fentanyl 100 Mcg/2 Ml Sdv) Confirm Administered Dose 100 mcg .ROUTE .STK-MED ONE Stop: 02/01/21 08:45 Lactated Ringer's (Ringers, Lactated) 1,000 mls @ 125 mls/hr IV ASDIRECTED [facility] Last Admin: 02/01/21 12:04 Dose: 125 mls/hr Documented by: Midazolam HCl (Midazolam 1 Mg/Ml 2 Ml Sdv) Confirm Administered Dose 2 mg .ROUTE .[employer] ONE Stop: 02/01/21 12:35 Ondansetron HCl (Ondansetron 4 Mg/2 Ml Sdv) 4 mg IV Q6H PRN PRN Reason: Nausea/Vomiting Ondansetron HCl (Ondansetron 4 Mg Tab.Dis) 4 mg PO Q6H PRN PRN Reason: Nausea able to take PO Last Admin: 02/01/21 16:47 Dose: 4 mg Documented by: Propofol (Propofol 200 Mg/20 Ml Sdv) Confirm Administered Dose 200 mg .ROUTE .[employer] Consult ONE Stop: 02/01/21 08:45 - Exam Quality Assessment: No: Supplemental Oxygen General: Alert, Oriented, Cooperative, No Acute Distress Neck: Supple Lungs: Normal Respiratory Effort Cardiovascular: Regular Rate, Regular Rhythm GI/Abdominal Exam: Soft, No Distention Extremities: No Pedal Edema Psy/Mental Status: Alert, Normal Affect - Patient Data Lab Results Last 24 hrs: Laboratory Results - last 24 hr 01/31/21 02/01/21 02/01/21 Range/Units 16:05 12:45 15:00 WBC (4.5-11.0) K/uL RBC (3.30-5.50) M/uL Hgb 8.7 L (12.0-15.0) g/dL Hct 27.8 L (36.0-48.0) % MCV (80-98) fL MCH (27-31) pg MCHC (32-36) % Plt Count (150-400) K/uL Sodium (140-148) mmol/L Potassium (3.6-5.2) mmol/L Chloride (100-108) mmol/L Carbon Dioxide (21-32) mmol/L Anion Gap (5.0-14.0) mmol/L BUN (7-18) mg/dL Creatinine (0.6-1.0) mg/dL Est Cr Clr Drug Dosing mL/min Estimated GFR (MDRD) (>60) Glucose (74-106) mg/dL Calcium (8.5-10.1) mg/dL Phosphorus (2.5-4.9) mg/dL Magnesium (1.8-2.4) mg/dL Total Bilirubin (0.2-1.0) mg/dL AST (15-37) U/L ALT (12-78) U/L Alkaline Phosphatase (46-116) U/L Total Protein (6.4-8.2) g/dL Albumin (3.4-5.0) g/dL Globulin (2.3-3.5) g/dL Albumin/Globulin Ratio (1.2-2.2) Blood Type O POSITIVE Gel Antibody Screen Negative Crossmatch See Detail 02/01/21 02/02/21 02/02/21 Range/Units 20:00 04:00 05:00 WBC 4.6 (4.5-11.0) K/uL RBC 2.60 L (3.30-5.50) M/uL Hgb 7.2 L 7.7 L (12.0-15.0) g/dL Hct 24.4 L (36.0-48.0) % MCV 94 (80-98) fL MCH 30 (27-31) pg MCHC 32 (32-36) % Plt Count 193 (150-400) K/uL Sodium 146 (140-148) mmol/L Potassium 4.0 (3.6-5.2) mmol/L Chloride 110 H (100-108) mmol/L Carbon Dioxide 27 (21-32) mmol/L Anion Gap 13.0 (5.0-14.0) mmol/L BUN 17 (7-18) mg/dL Creatinine 0.8 (0.6-1.0) mg/dL Est Cr Clr Drug Dosing 77.06 mL/min Estimated GFR (MDRD) > 60 (>60) Glucose 91 (74-106) mg/dL Calcium 7.5 L (8.5-10.1) mg/dL Phosphorus 4.0 (2.5-4.9) mg/dL Magnesium 1.9 (1.8-2.4) mg/dL Total Bilirubin 0.5 (0.2-1.0) mg/dL AST 16 (15-37) U/L ALT 17 (12-78) U/L Alkaline Phosphatase 52 (46-116) U/L Total Protein 4.2 L (6.4-8.2) g/dL Albumin 2.1 L (3.4-5.0) g/dL Globulin 2.1 L (2.3-3.5) g/dL Albumin/Globulin Ratio 1.0 L (1.2-2.2) Blood Type Gel Antibody Screen Crossmatch Result Diagrams: 02/02/21 05:00 02/02/21 04:00 Sepsis Event Note - Evaluation Sepsis Screening Result: No Definite Risk - Focused Exam Vital Signs: Vital Signs Temp Temp Pulse Resp BP Pulse Ox 02/02/21 08:00 36.6 C 60 14 110/59 L 97 02/02/21 02:00 63 13 110/48 L 94 L 02/02/21 00:00 36.5 C 59 L 14 105/55 L 96 02/01/21 23:57 36.5 C 62 14 107/54 L 96 02/01/21 23:45 36.5 C 70 14 115/55 L 96 02/01/21 23:15 36.6 C 62 15 109/49 L 97 02/01/21 22:45 36.6 C 62 14 105/52 L 96 02/01/21 22:15 36.6 C 64 14 112/54 L 97 02/01/21 22:00 36.6 C 36.6 C 63 14 111/54 L 96 02/01/21 21:45 36.6 C 66 14 121/61 96 02/01/21 21:30 36.8 C 71 18 113/55 L 97 02/01/21 21:17 36.8 C 67 21 H 118/37 L 99 - Problem List & Annotations (1) Acute lower gastrointestinal hemorrhage SNOMED Code(s): 85504359 Code(s): K92.2 - GASTROINTESTINAL HEMORRHAGE, UNSPECIFIED Status: Acute Current Visit: Yes (2) Anemia due to blood loss, acute SNOMED Code(s): 484434376 Code(s): D62 - ACUTE POSTHEMORRHAGIC ANEMIA Status: Acute Current Visit: Yes (3) Hx of gastric bypass SNOMED Code(s): 954686391 Code(s): Z98.84 - BARIATRIC SURGERY STATUS Status: Chronic Current Visit: Yes - Problem List Review Problem List Initiated/Reviewed/Updated: Yes - My Orders Last 24 Hours: My Active Orders 02/01/21 09:00 Aspirin [Halfprin] 81 mg PO DAILY Cyanocobalamin (Vitamin B12) [Vitamin B12] 1,000 mcg PO DAILY Loratadine [Claritin] 10 mg PO DAILY 02/01/21 16:56 Lactated Ringers [Ringers, Lactated] 1,000 ml IV ASDIRECTED 02/01/21 18:19 Admission Status [Patient Status] [ADT] Routine 02/01/21 20:37 Ondansetron [Zofran ODT] 4 mg PO Q4H PRN Ondansetron [Zofran] 4 mg IV Q4H PRN 02/01/21 20:46 Transfuse Red Blood Cells [COMM] Routine 02/02/21 08:50 Convert IV to Saline Lock [OM.PC] Routine 02/02/21 17:00 HGB [HEMOGLOBIN] [HEME] Q12H 02/03/21 05:00 BASIC METABOLIC PANEL,BMP [CHEM] Timed HGB [HEMOGLOBIN] [HEME] Q12H - Plan Plan:: ASSESSMENT AND PLAN - Acute lower gastrointestinal hemorrhage-complicated by anemia due to blood loss (she has received 4 units of PRBCs so far). Bleeding from diverticular disease versus bypassed stomach. CT scan did not suggest acute pathology in the abdomen though it was performed without IV contrast because of her allergy. -Saline lock IV -Recheck hemoglobin tonight and in the morning -colonoscopy tomorrow -Continue PPI History of gastric bypass surgery-completed in 2007. Maintenance issues - -DVT prophylaxis-mechanical -GI prophylaxis-PPI -Nutrition-clear liquids Disposition -I anticipate discharge home after the hospital stay Primary care- [facility] Eriberto Esquivel M.D.
[2021-02-02] MEDS ORDERED: Bisacodyl 5 MG Tab PO ONE ×2 (09:00→20:00)
--- NOTE | 2021-02-02 15:22 | OR ---
DATE OF PROCEDURE: 02/02/2021 SURGEON: Antonio Burnham MD The patient has been hemodynamically stable and afebrile. She did have some dark red blood stools yesterday afternoon and has received two additional units of packed RBCs and had no further bleeding per rectum overnight. CT scan of the abdomen was obtained which appeared to be unremarkable but we will review that to see there might be some thickening of the gastric or duodenal lining. Otherwise, we will proceed with a colonoscopy tomorrow given the continued bleeding. My suspicion is this may very well be, however, bleeding from the bypassed stomach and/or duodenum which generally should improve with the PPI use. H pylori breath test is pending. However, I will plan to proceed with a colonoscopy tomorrow. Antonio Burnham MD /[id number]
[2021-02-02] MEDS ORDERED: Polyethylene Glycol 3350 Powder 238 GM Bot PO ONE (17:00)
[2021-02-02] MEDS: Pravastatin 20 MG Tab PO SCH (21:02)
[2021-02-02] MEDS: Montelukast 10 MG Tab PO SCH (21:02)
[2021-02-03] MEDS: Pantoprazole 40 MG Vial IV SCH (05:31)
[2021-02-03] MEDS: Formoterol/Mometasone 200-5 MCG 8.8 GM Inhaler IH SCH ×2 (07:07→20:34)
[2021-02-03] MEDS: Levothyroxine 100 MCG, Levothyroxine 25 MCG PO SCH ×4 (07:47→12:23)
--- NOTE | 2021-02-03 09:00 | PCM.PN ---
- General Info Date of Service: 02/03/21 Subjective Update: No acute events overnight. No hematochezia overnight. Tolerated colonoscopy prep well. No abdominal pain or nausea. Colonoscopy showed diverticulosis but no bleeding. Functional Status: Reports: Pain Controlled, Tolerating Diet - Review of Systems General: Denies: Fever Gastrointestinal: Denies: Abdominal Pain, Hematochezia - Patient Data Vitals - Most Recent: Last Vital Signs Temp 36.8 C 02/03/21 08:00 Pulse 52 L 02/03/21 06:00 Resp 16 02/03/21 08:00 BP 128/60 02/03/21 08:00 Pulse Ox 97 02/03/21 08:00 Weight - Most Recent: 79.3 kg I&O - Last 24 Hours: Intake & Output 02/02/21 02/03/21 02/03/21 22:59 06:59 14:59 Intake Total 971 Balance 971 Lab Results Last 24 Hours: Laboratory Results - last 24 hr 01/31/21 02/02/21 02/03/21 Range/Units 16:05 17:00 04:28 Hgb 9.5 L 8.3 L (12.0-15.0) g/dL Sodium (140-148) mmol/L Potassium (3.6-5.2) mmol/L Chloride (100-108) mmol/L Carbon Dioxide (21-32) mmol/L Anion Gap (5.0-14.0) mmol/L BUN (7-18) mg/dL Creatinine (0.6-1.0) mg/dL Est Cr Clr Drug Dosing mL/min Estimated GFR (MDRD) (>60) Glucose (74-106) mg/dL Calcium (8.5-10.1) mg/dL Blood Type O POSITIVE Gel Antibody Screen Negative Crossmatch See Detail 02/03/21 Range/Units 04:28 Hgb (12.0-15.0) g/dL Sodium 146 (140-148) mmol/L Potassium 3.7 (3.6-5.2) mmol/L Chloride 109 H (100-108) mmol/L Carbon Dioxide 31 (21-32) mmol/L Anion Gap 9.7 (5.0-14.0) mmol/L BUN 9 (7-18) mg/dL Creatinine 0.8 (0.6-1.0) mg/dL Est Cr Clr Drug Dosing 77.06 mL/min Estimated GFR (MDRD) > 60 (>60) Glucose 95 (74-106) mg/dL Calcium 7.8 L (8.5-10.1) mg/dL Blood Type Gel Antibody Screen Crossmatch Med Orders - Current: Current Medications Acetaminophen (Acetaminophen 325 Mg Tab) 650 mg PO Q4H PRN PRN Reason: Pain (Mild 1-3)/fever Albuterol (Albuterol 0.083% 2.5 Mg/3 Ml Neb Soln) 2.5 mg NEB Q4H PRN PRN Reason: Shortness Of Breath/wheezing Aspirin (Aspirin 81 Mg Tab.Ec) 81 mg PO DAILY [facility] Last Admin: 02/02/21 08:40 Dose: Not Given Documented by: Cyanocobalamin (Cyanocobalamin (Vitamin B12) 1,000 Mcg Tab) 1,000 mcg PO DAILY [facility] Last Admin: 02/02/21 08:40 Dose: 1,000 mcg Documented by: Hydromorphone HCl (Hydromorphone 0.5 Mg/0.5 Ml Syringe) 0.5 mg IVPUSH Q2H PRN PRN Reason: Pain (severe 7-10) Levothyroxine Sodium 100 mcg/ (Levothyroxine Sodium 25 mcg) 125 mcg PO DAILY@ 0730 [facility] Last Admin: 02/03/21 07:47 Dose: Not Given Documented by: Loratadine (Loratadine 10 Mg Tab) 10 mg PO DAILY [facility] Last Admin: 02/02/21 08:40 Dose: 10 mg Documented by: Lorazepam (Lorazepam 2 Mg/Ml Sdv) 0.5 mg IVPUSH Q4H PRN PRN Reason: Nausea/Vomiting Magnesium Hydroxide (Magnesium Hydroxide 400 Mg/5 Ml Susp 30 Ml Cup) 30 ml PO Q12H PRN PRN Reason: Constipation Melatonin (Melatonin 3 Mg Tab) 9 mg PO BEDTIME PRN PRN Reason: Sleep Mometasone Furoate/Formoterol Fumar (Formoterol/Mometasone 200-5 Mcg 8.8 Gm Inhaler) 2 puff IH BIDRT [facility] Last Admin: 02/03/21 07:07 Dose: 2 puff Documented by: Montelukast Sodium (Montelukast 10 Mg Tab) 10 mg PO BEDTIME [facility] Last Admin: 02/02/21 21:02 Dose: 10 mg Documented by: Ondansetron HCl (Ondansetron 4 Mg Tab.Dis) 4 mg PO Q4H PRN PRN Reason: Nausea able to take PO Last Admin: 02/01/21 21:22 Dose: 4 mg Documented by: Ondansetron HCl (Ondansetron 4 Mg/2 Ml Sdv) 4 mg IV Q4H PRN PRN Reason: Nausea/Vomiting Oxycodone HCl (Oxycodone 5 Mg Tab) 5 mg PO Q4H PRN PRN Reason: Pain (moderate 4-6) Pantoprazole Sodium (Pantoprazole 40 Mg Vial) 40 mg IV Q12H [facility] Last Admin: 02/03/21 05:31 Dose: 40 mg Documented by: Pravastatin Sodium (Pravastatin 20 Mg Tab) 20 mg PO BEDTIME [facility] Last Admin: 02/02/21 21:02 Dose: 20 mg Documented by: Senna/Docusate Sodium (Docusate Sodium/Sennosides 50-8.6 Mg Tab) 1 tab PO BID PRN PRN Reason: Constipation Sodium Chloride (Sodium Chloride 0.9% 10 Ml Syringe) 10 ml FLUSH ASDIRECTED PRN PRN Reason: Keep Vein Open Discontinued Medications Bisacodyl (Bisacodyl 5 Mg Tab) 10 mg PO ONETIME ONE Stop: 02/02/21 09:01 Last Admin: 02/02/21 08:40 Dose: 10 mg Documented by: Bisacodyl (Bisacodyl 5 Mg Tab) 10 mg PO ONETIME ONE Stop: 02/02/21 20:01 Last Admin: 02/02/21 19:39 Dose: 10 mg Documented by: Fentanyl (Fentanyl 100 Mcg/2 Ml Sdv) Confirm Administered Dose 100 mcg .ROUTE .STK-MED ONE Stop: 02/01/21 08:45 Lactated Ringer's (Ringers, Lactated) 1,000 mls @ 125 mls/hr IV ASDIRECTED [facility] Last Admin: 02/01/21 12:04 Dose: 125 mls/hr Documented by: Lactated Ringer's (Ringers, Lactated) 1,000 mls @ 75 mls/hr IV ASDIRECTED [facility] Last Admin: 02/02/21 08:00 Dose: 75 mls/hr Documented by: Midazolam HCl (Midazolam 1 Mg/Ml 2 Ml Sdv) Confirm Administered Dose 2 mg .ROUTE .STK-MED ONE Stop: 02/01/21 12:35 Ondansetron HCl (Ondansetron 4 Mg/2 Ml Sdv) 4 mg IV Q6H PRN PRN Reason: Nausea/Vomiting Ondansetron HCl (Ondansetron 4 Mg Tab.Dis) 4 mg PO Q6H PRN PRN Reason: Nausea able to take PO Last Admin: 02/01/21 16:47 Dose: 4 mg Documented by: Polyethylene Glycol (Polyethylene Glycol 3350 Powder 238 Gm Bot) 238 gm PO ONETIME ONE Stop: 02/02/21 17:01 Last Admin: 02/02/21 16:37 Dose: 238 gm Documented by: Propofol (Propofol 200 Mg/20 Ml Sdv) Confirm Administered Dose 200 mg .ROUTE .STK-MED ONE Stop: 02/01/21 08:45 - Exam Quality Assessment: Supplemental Oxygen General: Alert, Oriented, Cooperative, No Acute Distress Lungs: Normal Respiratory Effort GI/Abdominal Exam: Soft, No Distention Extremities: No Pedal Edema Psy/Mental Status: Alert, Normal Affect - Patient Data Lab Results Last 24 hrs: Laboratory Results - last 24 hr 01/31/21 02/02/21 02/03/21 Range/Units 16:05 17:00 04:28 Hgb 9.5 L 8.3 L (12.0-15.0) g/dL Sodium (140-148) mmol/L Potassium (3.6-5.2) mmol/L Chloride (100-108) mmol/L Carbon Dioxide (21-32) mmol/L Anion Gap (5.0-14.0) mmol/L BUN (7-18) mg/dL Creatinine (0.6-1.0) mg/dL Est Cr Clr Drug Dosing mL/min Estimated GFR (MDRD) (>60) Glucose (74-106) mg/dL Calcium (8.5-10.1) mg/dL Blood Type O POSITIVE Gel Antibody Screen Negative Crossmatch See Detail 02/03/21 Range/Units 04:28 Hgb (12.0-15.0) g/dL Sodium 146 (140-148) mmol/L Potassium 3.7 (3.6-5.2) mmol/L Chloride 109 H (100-108) mmol/L Carbon Dioxide 31 (21-32) mmol/L Anion Gap 9.7 (5.0-14.0) mmol/L BUN 9 (7-18) mg/dL Creatinine 0.8 (0.6-1.0) mg/dL Est Cr Clr Drug Dosing 77.06 mL/min Estimated GFR (MDRD) > 60 (>60) Glucose 95 (74-106) mg/dL Calcium 7.8 L (8.5-10.1) mg/dL Blood Type Gel Antibody Screen Crossmatch Result Diagrams: 02/03/21 04:28 02/03/21 04:28 Sepsis Event Note - Evaluation Sepsis Screening Result: No Definite Risk - Focused Exam Vital Signs: Vital Signs Temp Pulse Resp BP Pulse Ox 02/03/21 08:00 36.8 C 16 128/60 97 02/03/21 06:00 52 L 13 118/55 L 97 02/03/21 04:00 57 L 13 108/55 L 97 02/03/21 02:00 36.8 C 64 15 121/59 L 95 02/03/21 00:00 57 L 14 123/60 95 02/02/21 22:00 70 16 128/57 L 96 - Problem List & Annotations (1) Acute lower gastrointestinal hemorrhage SNOMED Code(s): 49018920 Code(s): K92.2 - GASTROINTESTINAL HEMORRHAGE, UNSPECIFIED Status: Acute Current Visit: Yes (2) Anemia due to blood loss, acute SNOMED Code(s): 104161523 Code(s): D62 - ACUTE POSTHEMORRHAGIC ANEMIA Status: Acute Current Visit: Yes (3) Hx of gastric bypass SNOMED Code(s): 802002391 Code(s): Z98.84 - BARIATRIC SURGERY STATUS Status: Chronic Current Visit: Yes - Problem List Review Problem List Initiated/Reviewed/Updated: Yes - My Orders Last 24 Hours: My Active Orders 02/02/21 08:50 Convert IV to Saline Lock [OM.PC] Routine - Plan Plan:: ASSESSMENT AND PLAN - Acute lower gastrointestinal hemorrhage-complicated by anemia due to blood loss (she has received 4 units of PRBCs so far). Bleeding from diverticular disease versus bypassed stomach. CT scan and colonoscopy unremarkable. -Saline lock IV -Recheck hemoglobin in the morning -Continue PPI History of gastric bypass surgery-completed in 2007. Maintenance issues - -DVT prophylaxis-mechanical -GI prophylaxis-PPI -Nutrition-regular Disposition -I anticipate discharge home after the hospital stay Primary care- [facility] Eriberto Esquivel M.D.
[2021-02-03] MEDS ORDERED: fentaNYL 100 MCG/2 ML SDV ONE (09:05)
[2021-02-03] MEDS ORDERED: Midazolam 1 MG/ML 2 ML SDV ONE (09:05)
[2021-02-03] MEDS ORDERED: Propofol 200 MG/20 ML SDV ONE ×2 (09:05→10:25)
[2021-02-03] MEDS: Loratadine 10 MG Tab PO SCH ×2 (09:07→12:23)
[2021-02-03] MEDS: Cyanocobalamin (Vitamin B12) 1,000 MCG Tab PO SCH ×2 (09:07→12:23)
[2021-02-03 09:15] LABS: H. PYLORI BREATH TEST Negative (Negative)
[2021-02-03] MEDS ORDERED: Ondansetron 4 MG/2 ML SDV ONE (10:02)
[2021-02-03] MEDS ORDERED: Dexamethasone 4 MG/ML SDV ONE (10:02)
[2021-02-03] MEDS ORDERED: Sodium Ferric Gluconate Cmplex 250 MG in Sodium Chloride 0.9% 100 ML IV SCH (12:00)
[2021-02-03] MEDS: Multivitamins with Iron Tab.Chew PO SCH ×2 (12:23→20:33)
[2021-02-03] MEDS: Pantoprazole 40 MG Tab.CR PO SCH (17:06)
[2021-02-03] MEDS: Pravastatin 20 MG Tab PO SCH (20:33)
[2021-02-03] MEDS: Montelukast 10 MG Tab PO SCH (20:35)
[2021-02-04] MEDS: Formoterol/Mometasone 200-5 MCG 8.8 GM Inhaler IH SCH (07:22)
[2021-02-04] MEDS: Pantoprazole 40 MG Tab.CR PO SCH (08:25)
[2021-02-04] MEDS: Levothyroxine 100 MCG, Levothyroxine 25 MCG PO SCH ×2 (08:25)
[2021-02-04] MEDS: Multivitamins with Iron Tab.Chew PO SCH (08:26)
[2021-02-04] MEDS: Loratadine 10 MG Tab PO SCH (08:28)
[2021-02-04] MEDS: Cyanocobalamin (Vitamin B12) 1,000 MCG Tab PO SCH (08:29)
--- NOTE | 2021-02-04 09:25 | PCM.DCSUM1 ---
Discharge Summary - Hospital Course Brief History: 55-year-old female with history of gastric bypass surgery in 2007, multiple episodes of gastrointestinal bleeding without definitive source located who presented with hematochezia and anemia. She was admitted for management of acute gastrointestinal hemorrhage complicated by anemia due to blood loss. - Discharge Data Discharge Date: 02/04/21 Discharge Disposition: Home, Self-Care 01 Condition: Good - Referral to Home Health Primary Care Physician: PCP Unknown - Discharge Diagnosis/Problem(s) (1) Acute lower gastrointestinal hemorrhage SNOMED Code(s): 13887446 ICD Code: K92.2 - GASTROINTESTINAL HEMORRHAGE, UNSPECIFIED Status: Acute (2) Anemia due to blood loss, acute SNOMED Code(s): 697059451 ICD Code: D62 - ACUTE POSTHEMORRHAGIC ANEMIA Status: Acute (3) Hx of gastric bypass SNOMED Code(s): 596049978 ICD Code: Z98.84 - BARIATRIC SURGERY STATUS Status: Chronic - Patient Summary/Data Consults: Consultations 01/31/21 16:50 Consult to Physician [CONS] Routine Consulting Provider: Antonio Burnham Courtesy Call Completed to Consulting Physician: Yes Reason for Consult: BRBPR Person Notified: RUDOLPH Date Notified: 01/31/21 Special Instructions: EGD in am Hospital Course: Samia presented to the emergency room with hematochezia as well as dizziness/lightheadedness. Work-up in the emergency room raised concern for acute gastrointestinal hemorrhage with lower seeming most likely at the time of presentation. She had anemia due to blood loss and required 1 unit of blood via transfusion at the time of admission. She had some additional bleeding overnight but then the bleeding seemed to stop. She did require a second unit of blood the next morning. She had an EGD the morning after admission which was unremarkable. We did perform a CT scan with the hope of evaluating her bypassed stomach but because of her contrast allergy we could not use IV contrast. This study was nondiagnostic. Her bleeding did stop for a while and then recurred. She did require the transfusion of 2 additional units of blood with hemoglobins in the low 7 range as well as dizziness and borderline hypotension. Her bleeding seems to have stopped at this point. She did complete a colonoscopy prep and had a colonoscopy the day prior to discharge which showed diverticulosis but no evidence for bleeding. We have been managing this is an upper GI bleed with some concern that this may be related to an ulcer in the bypassed stomach. Unfortunately we are not able to evaluate the bypass stomach at this time. It is noted that she has been taking naproxen regu larly for some time and this could have contributed to the ulcer. She has been tolerating the proton pump inhibitor and clinically has done well for the past 36 hours or so. She is tolerating a regular diet and is stable and safe for discharged home. It is not entirely clear at this point if the bleeding was because of an ulcer in the bypassed stomach versus diverticular bleeding. For the time being we are going to discontinue her naproxen and utilize a proton pump inhibitor to help heal up any potential ulcer that may be present. If she has additional bleeding we may need to consider further evaluation either of the bypass stomach or potentially a segmental colectomy to help with the diverticulosis/potential diverticular bleeding. She did receive iron the day prior to discharge. She has follow-up scheduled for next week with a repeat CBC. - Patient Instructions Diet: Usual Diet as Tolerated Activity: As Tolerated Showering/Bathing: May Shower Other/Special Instructions: 1. You were in the hospital for management of acute gastrointestinal bleeding complicated by anemia due to blood loss. We did not ever determine a definite source for the bleeding and it could have been coming from either diverticular disease in your colon or possibly from an ulcer in your bypassed stomach. The bleeding has stopped at this time. I do recommend that you take pantoprazole 40 mg once daily to help protect your stomach lining and reduce the risk of future ulcers and help heal any potential ulcer that may be present. 2. Stop taking naproxen as this can increase your risk for gastric ulcers. We have provided a prescription for Celebrex to use in its place. Please take 200 mg once daily. 3. Follow up with Oscar Stringer in 1 week to recheck after the hospital stay. You should have a complete blood count prior to this visit. - Discharge Plan *PRESCRIPTION DRUG MONITORING PROGRAM REVIEWED*: Not Applicable *COPY OF PRESCRIPTION DRUG MONITORING REPORT IN PATIENT LIUDMILA: Not Applicable Prescriptions/Med Rec: Celecoxib [CeleBREX] 200 mg PO DAILY #90 cap Pantoprazole [ProTONIX] 40 mg PO DAILY #90 tab.cr Home Medications: Home Meds Albuterol Sulfate [Albuterol Sulfate HFA] 1 - 2 puff IH ASDIRECTED PRN 11/26/14 [History] Furosemide [Lasix] 40 mg PO DAILY 07/15/14 [History] Loratadine 10 mg PO DAILY 07/15/14 [History] Simvastatin [Zocor] 10 mg PO DAILY 07/15/14 [History] Cyanocobalamin (Vitamin B-12) [Vitamin B-12] 1,000 mcg PO DAILY 05/10/20 [History] Levothyroxine 125 mcg PO ACBREAKFAST 05/10/20 [History] Montelukast [Singulair] 10 mg PO DAILY 05/10/20 [History] Acetaminophen [Tylenol] 650 mg PO Q4H PRN tablet 05/13/20 [Rx] Iron,Carbonyl/Ascorbic Acid [Vitron-C Tablet] 1 each PO BID #60 tablet.dr 05/13/20 [Rx] Potassium Chloride [Klor-Con M20] 20 meq PO BID #60 tab.er 05/13/20 [Rx] Fluticasone Propion/Salmeterol [Fluticasone-Salmeterol 500-50] 1 puff INH BID 05/20/20 [History] Aspirin [Low Dose Aspirin EC] 81 mg PO DAILY 01/31/21 [History] Celecoxib [CeleBREX] 200 mg PO DAILY #90 cap 02/04/21 [Rx] Pantoprazole [ProTONIX] 40 mg PO DAILY #90 tab.cr 02/04/21 [Rx] Oxygen Therapy Mode: Room Air Patient Handouts: Gastrointestinal Bleeding Referrals: Farrah Stringer PA-C [[facility] [employer] [employer]] - 02/10/21 9:15 am (w/u in 1 week - f/u hospital stay for GI bleed. CBC on day of the visit) - Discharge Summary/Plan Comment DC Time >30 min.: No - Patient Data Vitals - Most Recent: Last Vital Signs Temp 36.8 C 02/04/21 08:00 Pulse 62 02/04/21 08:00 Resp 18 02/04/21 08:00 BP 122/65 02/04/21 08:00 Pulse Ox 99 02/04/21 04:00 Weight - Most Recent: 79.3 kg Lab Results - Last 24 hrs: Laboratory Results - last 24 hr 02/04/21 Range/Units 04:51 WBC 10.3 (4.5-11.0) K/uL RBC 3.05 L (3.30-5.50) M/uL Hgb 9.2 L (12.0-15.0) g/dL Hct 29.0 L (36.0-48.0) % MCV 95 (80-98) fL MCH 30 (27-31) pg MCHC 32 (32-36) % Plt Count 213 (150-400) K/uL Med Orders - Current: Current Medications Acetaminophen (Acetaminophen 325 Mg Tab) 650 mg PO Q4H PRN PRN Reason: Pain (Mild 1-3)/fever Albuterol (Albuterol 0.083% 2.5 Mg/3 Ml Neb Soln) 2.5 mg NEB Q4H PRN PRN Reason: Shortness Of Breath/wheezing Aspirin (Aspirin 81 Mg Tab.Ec) 81 mg PO DAILY [facility] Last Admin: 02/02/21 08:40 Dose: Not Given Documented by: Cyanocobalamin (Cyanocobalamin (Vitamin B12) 1,000 Mcg Tab) 1,000 mcg PO DAILY [facility] Last Admin: 02/04/21 08:29 Dose: 1,000 mcg Documented by: Hydromorphone HCl (Hydromorphone 0.5 Mg/0.5 Ml Syringe) 0.5 mg IVPUSH Q2H PRN PRN Reason: Pain (severe 7-10) Ferric Sodium Gluconate Complex 250 mg/ Sodium Chloride 120 mls @ 60 mls/hr IV Q24H [facility] Stop: 02/04/21 11:59 Levothyroxine Sodium 100 mcg/ (Levothyroxine Sodium 25 mcg) 125 mcg PO DAILY@0730 [facility] Last Admin: 02/04/21 08:25 Dose: 125 mcg Documented by: Loratadine (Loratadine 10 Mg Tab) 10 mg PO DAILY [facility] Last Admin: 02/04/21 08:28 Dose: 10 mg Documented by: Lorazepam (Lorazepam 2 Mg/Ml Sdv) 0.5 mg IVPUSH Q4H PRN PRN Reason: Nausea/Vomiting Magnesium Hydroxide (Magnesium Hydroxide 400 Mg/5 Ml Susp 30 Ml Cup) 30 ml PO Q12H PRN PRN Reason: Constipation Melatonin (Melatonin 3 Mg Tab) 9 mg PO BEDTIME PRN PRN Reason: Sleep Mometasone Furoate/Formoterol Fumar (Formoterol/Mometasone 200-5 Mcg 8.8 Gm Inhaler) 2 puff IH BIDRT [facility] Last Admin: 02/04/21 07:22 Dose: 2 puff Documented by: Montelukast Sodium (Montelukast 10 Mg Tab) 10 mg PO BEDTIME [facility] Last Admin: 02/03/21 20:35 Dose: 10 mg Documented by: Multivitamins/Iron (Multivitamins With Iron Tab.Chew) 2 tab PO BID [facility] Last Admin: 02/04/21 08:26 Dose: 2 tab Documented by: Ondansetron HCl (Ondansetron 4 Mg Tab.Dis) 4 mg PO Q4H PRN PRN Reason: Nausea able to take PO Last Admin: 02/01/21 21:22 Dose: 4 mg Documented by: Ondansetron HCl (Ondansetron 4 Mg/2 Ml Sdv) 4 mg IV Q4H PRN PRN Reason: Nausea/Vomiting Oxycodone HCl (Oxycodone 5 Mg Tab) 5 mg PO Q4H PRN PRN Reason: Pain (moderate 4-6) Pantoprazole Sodium (Pantoprazole 40 Mg Tab.Cr) 40 mg PO BIDAC [facility] Last Admin: 02/04/21 08:25 Dose: 40 mg Documented by: Pravastatin Sodium (Pravastatin 20 Mg Tab) 20 mg PO BEDTIME [facility] Last Admin: 02/03/21 20:33 Dose: 20 mg Documented by: Senna/Docusate Sodium (Docusate Sodium/Sennosides 50-8.6 Mg Tab) 1 tab PO BID PRN PRN Reason: Constipation Sodium Chloride (Sodium Chloride 0.9% 10 Ml Syringe) 10 ml FLUSH ASDIRECTED PRN PRN Reason: Keep Vein Open Discontinued Medications Bisacodyl (Bisacodyl 5 Mg Tab) 10 mg PO ONETIME ONE Stop: 02/02/21 09:01 Last Admin: 02/02/21 08:40 Dose: 10 mg Documented by: Bisacodyl (Bisacodyl 5 Mg Tab) 10 mg PO ONETIME ONE Stop: 02/02/21 20:01 Last Admin: 02/02/21 19:39 Dose: 10 mg Documented by: Dexamethasone (Dexamethasone 4 Mg/Ml Sdv) Confirm Administered Dose 4 mg .ROUTE .STK-MED ONE Stop: 02/03/21 10:03 Fentanyl (Fentanyl 100 Mcg/2 Ml Sdv) Confirm Administered Dose 100 mcg .ROUTE .STK-MED ONE Stop: 02/01/21 08:45 Fentanyl (Fentanyl 100 Mcg/2 Ml Sdv) Confirm Administered Dose 100 mcg .ROUTE .[facility] ONE Stop: 02/03/21 09:06 Lactated Ringer's (Ringers, Lactated) 1,000 mls @ 125 mls/hr IV ASDIRECTED [facility] Last Admin: 02/01/21 12:04 Dose: 125 mls/hr Documented by: Lactated Ringer's (Ringers, Lactated) 1,000 mls @ 75 mls/hr IV ASDIRECTED [facility] Last Admin: 02/02/21 08:00 Dose: 75 mls/hr Documented by: Ferric Sodium Gluconate Complex 250 mg/ Sodium Chloride 120 mls @ 30 mls/hr IV Q24H [facility] Stop: 02/04/21 15:59 Last Admin: 02/03/21 12:23 Dose: 30 mls/hr Documented by: Midazolam HCl (Midazolam 1 Mg/Ml 2 Ml Sdv) Confirm Administered Dose 2 mg .ROUTE .STK-MED ONE Stop: 02/01/21 12:35 Midazolam HCl (Midazolam 1 Mg/Ml 2 Ml Sdv) Confirm Administered Dose 2 mg .ROUTE .[facility] ONE Stop: 02/03/21 09:06 Ondansetron HCl (Ondansetron 4 Mg/2 Ml Sdv) 4 mg IV Q6H PRN PRN Reason: Nausea/Vomiting Ondansetron HCl (Ondansetron 4 Mg Tab.Dis) 4 mg PO Q6H PRN PRN Reason: Nausea able to take PO Last Admin: 02/01/21 16:47 Dose: 4 mg Documented by: Ondansetron HCl (Ondansetron 4 Mg/2 Ml Sdv) Confirm Administered Dose 4 mg .ROUTE .STK-MED ONE Stop: 02/03/21 10:03 Pantoprazole Sodium (Pantoprazole 40 Mg Vial) 40 mg IV Q12H [facility] Last Admin: 02/03/21 05:31 Dose: 40 mg Documented by: Polyethylene Glycol (Polyethylene Glycol 3350 Powder 238 Gm Bot) 238 gm PO ONETIME ONE Stop: 02/02/21 17:01 Last Admin: 02/02/21 16:37 Dose: 238 gm Documented by: Propofol (Propofol 200 Mg/20 Ml Sdv) Confirm Administered Dose 200 mg .ROUTE .STK-MED ONE Stop: 02/01/21 08:45 Propofol (Propofol 200 Mg/20 Ml Sdv) Confirm Administered Dose 200 mg .ROUTE .STK-MED ONE Stop: 02/03/21 09:06 Propofol (Propofol 200 Mg/20 Ml Sdv) Confirm Administered Dose 200 mg .ROUTE .STK-MED ONE Stop: 02/03/21 10:26 *Q Meaningful Use (DIS) - VTE *Q VTE Pharmacological Contraindications *Q: Risk of Bleeding
[2021-02-04] MEDS ORDERED: Sodium Ferric Gluconate Cmplex 250 MG in Sodium Chloride 0.9% 100 ML IV SCH (10:00)
--- NOTE | 2021-02-04 12:52 | PN ---
DATE OF SERVICE: 02/03/2021 The patient has been afebrile with stable vital signs. No further bleeding over the last 24 hours. Colonoscopy was done today which showed no blood or bleeding and quite extensive colonic diverticulosis. Overall, it would appear most likely the patient's bleeding had been from the bypassed stomach or duodenum based on the clinical appearance of the bleeding pattern and such. We will continue to treat her with proton pump inhibitors. Hemoglobin is 7.8 this morning. We will check another hemoglobin in the morning, and assuming there are no further signs of bleeding, she may be ready for discharge home tomorrow. Antonio Burnham MD /[id number]
--- NOTE | 2021-02-04 12:58 | PN ---
DATE OF SERVICE: 02/04/2021 The patient has had no further signs of bleeding. Hemoglobin is up to 9.2 today without any additional intervention. Plan will be to have the patient discharged home later today. At this point, the most likely source of her bleeding was the bypassed stomach or duodenum, and she had been on quite a bit of Naprosyn before. We will switch that over to Celebrex 200 mg a day, and the patient may be able to take that twice a day as time goes by. Otherwise, as long as she is on medications such as Celebrex, she will probably be on Protonix 40 mg a day. However, H pylori breath test was negative. She should follow up with Farrah Stringer. Clinic in one week with a CBC and a work excuse for this week. Antonio Burnham MD /[id number]
== END 2021-02-04 12:57 | disposition home or self-care (01) | DRG 253 ==
LOC: JP.ED 11:20 → JP.ICU 16:22
PROVIDERS: ADMIT Internal Medicine; ATTEND Internal Medicine
PROC: 30233N1 Transfusion of Nonautologous Red Blood Cells into Peripheral Vein, Percutaneous Approach (ICD-10-PCS; principal; 2021-01-31)
PROC: 0DJ08ZZ Inspection of Upper Intestinal Tract, Via Natural or Artificial Opening Endoscopic (ICD-10-PCS; 2021-02-02)
PROC: 0DJD8ZZ Inspection of Lower Intestinal Tract, Via Natural or Artificial Opening Endoscopic (ICD-10-PCS; 2021-02-03)
DX: K92.2 Gastrointestinal hemorrhage, unspecified (principal); D62 Acute posthemorrhagic anemia; Z98.84 Bariatric surgery status; H54.7 Unspecified visual loss; E78.5 Hyperlipidemia, unspecified; I10 Essential (primary) hypertension; E03.9 Hypothyroidism, unspecified; J45.909 Unspecified asthma, uncomplicated; Z98.890 Other specified postprocedural states
CPT/HCPCS: 36415; 36430; 74176; 80048; 80053; 82607; 82728; 82746; 83013; 83605; 83735; 84100; 85014; 85018; 85025; 85027; 85610; 86850; 86900; 86901; 86920; 86922; 94640; 99284; 99285-25; A9270-GY; C9113; J1100; J2250; J2405; J2704; J2916; J3010; J7120; P9016

== ENCOUNTER 2023-01-15 13:25 | Inpatient (IN) | payer BC, OTHER ==
[2023-01-15] MEDS ORDERED: HYDROmorphone 0.5 MG/0.5 ML Syringe IVPUSH ONE (13:59)
[2023-01-15] MEDS ORDERED: Sodium Chloride 0.9% 1,000 ML IV SCH ×2 (14:00→15:15)
[2023-01-15 14:09] LABS: BASOPHILS ABSOLUTE AUTO 0.08 K/uL (0.00-0.10); BASOPHILS PERCENT AUTO 0.5 % (0.1-1.3); EOSINOPHILS ABSOLUTE AUTO 0.03 K/uL (0.00-0.40); EOSINOPHILS PERCENT AUTO 0.2 % (0.0-5.4); HEMATOCRIT 32.3 % (34.3-46.0); HEMOGLOBIN 10.7 g/dL (11.2-15.5); IMMATURE GRAN ABSOLUTE AUTO 0.16 K/uL (0.00-0.23); LYMPHOCYTES ABSOLUTE AUTO 0.98 K/uL (0.8-3.3); MEAN CORPUSCULAR HEMOGLOBIN 31.8 pg (31.6-35.5); MEAN CORPUSCULAR HGB CONC 33.1 g/dL (31.6-35.5); MEAN CORPUSCULAR VOLUME 95.8 fL (81.4-99.0); MONOCYTES ABSOLUTE AUTO 0.93 K/uL (0.20-0.90); MONOCYTES PERCENT AUTO 5.7 % (3.3-12.6); NEUTROPHILS ABSOLUTE AUTO 14.23 K/uL (1.0-7.6); NEUTROPHILS PERCENT AUTO 86.6 % (40.0-78.1); PLATELET COUNT,PLT 275 K/uL (130-375); RED BLOOD CELL COUNT 3.37 M/uL (3.77-5.24); WHITE BLOOD CELL COUNT,WBC 16.4 K/uL (3.2-11.0)
[2023-01-15 14:30] LABS: ALANINE AMINOTRANSFERASE,ALT 19 U/L (12-78); ALBUMIN 3.5 g/dL (3.4-5.0); ALKALINE PHOSPHATASE 91 U/L (46-116); ASPARTATE AMNIOTRANSFERASE,AST 22 U/L (15-37); BILIRUBIN TOTAL 1.1 mg/dL (0.2-1.0); BLOOD UREA NITROGEN,BUN 31 mg/dL (7-18); CALCIUM 8.8 mg/dL (8.5-10.1); CARBON DIOXIDE,CO2 24 mmol/L (21-32); CHLORIDE,CL 99 mmol/L (100-108); CREATININE 1.1 mg/dL (0.6-1.0); EST CRCL DRUG DOSING (CG) 52.82 mL/min; ESTIMATED GFR 59 mL/min (>60); GLUCOSE RANDOM 141 mg/dL (74-106); POTASSIUM,K 3.6 mmol/L (3.6-5.2); PROTEIN TOTAL,TP 6.9 g/dL (6.4-8.2); SODIUM,NA 135 mmol/L (140-148)
[2023-01-15 14:31] LABS: ANION GAP 15.6 mmol/L (5.0-14.0)
[2023-01-15] MEDS ORDERED: Ondansetron 4 MG/2 ML SDV IVPUSH ONE (16:05)
[2023-01-15] MEDS ORDERED: Albuterol 0.083% 2.5 MG/3 ML Neb Soln NEB PRN (17:28)
[2023-01-15] MEDS ORDERED: Ondansetron 4 MG/2 ML SDV IV PRN (17:28)
[2023-01-15] MEDS ORDERED: HYDROmorphone 0.5 MG/0.5 ML Syringe IVPUSH PRN (17:28)
[2023-01-15] MEDS ORDERED: Acetaminophen 325 MG Tab PO PRN (17:28)
[2023-01-15] MEDS ORDERED: Ondansetron 4 MG Tab.DIS PO PRN (17:28)
[2023-01-15] MEDS: Pantoprazole 80 MG in Sodium Chloride 0.9% 100 ML IV SCH (17:35)
[2023-01-15] MEDS: Sodium Chloride 0.9% 1,000 ML IV SCH (17:35)
[2023-01-15] MEDS: Loratadine 10 MG Tab PO SCH (20:54)
[2023-01-15] MEDS: Montelukast 10 MG Tab PO SCH (20:54)
[2023-01-15] MEDS ORDERED: Formoterol/Mometasone 200-5 MCG 8.8 GM Inhaler IH SCH (21:00)
[2023-01-16] MEDS: Pantoprazole 80 MG in Sodium Chloride 0.9% 100 ML IV SCH ×3 (01:44→22:22)
[2023-01-16 04:55] LABS: HEMATOCRIT 22.2 % (34.3-46.0); HEMOGLOBIN 7.3 g/dL (11.2-15.5); MEAN CORPUSCULAR HEMOGLOBIN 31.6 pg (31.6-35.5); MEAN CORPUSCULAR HGB CONC 32.9 g/dL (31.6-35.5); MEAN CORPUSCULAR VOLUME 96.1 fL (81.4-99.0); RED BLOOD CELL COUNT 2.31 M/uL (3.77-5.24); WHITE BLOOD CELL COUNT,WBC 10.7 K/uL (3.2-11.0)
[2023-01-16 05:08] LABS: CALCIUM 7.9 mg/dL (8.5-10.1); EST CRCL DRUG DOSING (CG) 58.11 mL/min; POTASSIUM,K 3.9 mmol/L (3.6-5.2)
[2023-01-16 05:09] LABS: ANION GAP 10.9 mmol/L (5.0-14.0)
[2023-01-16 05:14] LABS: INR 1.1
[2023-01-16] MEDS: Sodium Chloride 0.9% 1,000 ML IV SCH ×2 (06:45→19:09)
[2023-01-16] MEDS ORDERED: Levothyroxine 100 MCG Tab PO SCH (07:30)
[2023-01-16] MEDS ORDERED: Levothyroxine 25 MCG Tab PO SCH (07:30)
[2023-01-16] MEDS ORDERED: Non-Formulary Medication 1 Each (Levothyroxine [Levothyroxine] 125 MCG Tablet) PO SCH (07:30)
[2023-01-16] MEDS: Formoterol/Mometasone 200-5 MCG 8.8 GM Inhaler IH SCH ×2 (08:14→20:02)
[2023-01-16] MEDS ORDERED: Bisacodyl 5 MG Tab PO ONE ×3 (09:00→20:00)
[2023-01-16] MEDS ORDERED: Loratadine 10 MG Tab PO SCH (09:00)
[2023-01-16] MEDS ORDERED: Montelukast 10 MG Tab PO SCH (09:00)
[2023-01-16] MEDS ORDERED: Propofol 200 MG/20 ML SDV ONE (11:26)
[2023-01-16] MEDS ORDERED: Midazolam 1 MG/ML 2 ML SDV ONE (11:26)
[2023-01-16] MEDS ORDERED: fentaNYL 100 MCG/2 ML SDV ONE (11:26)
[2023-01-16] MEDS ORDERED: Ondansetron 4 MG/2 ML SDV ONE (11:44)
[2023-01-16] MEDS: Levothyroxine 100 MCG, Levothyroxine 25 MCG PO SCH ×2 (13:19)
[2023-01-16] MEDS ORDERED: Pantoprazole 80 MG in Sodium Chloride 0.9% 100 ML IV SCH (14:00)
[2023-01-16 16:03] LABS: HEMATOCRIT 25.7 % (34.3-46.0); HEMOGLOBIN 8.7 g/dL (11.2-15.5); MEAN CORPUSCULAR HEMOGLOBIN 31.6 pg (31.6-35.5); MEAN CORPUSCULAR HGB CONC 33.9 g/dL (31.6-35.5); MEAN CORPUSCULAR VOLUME 93.5 fL (81.4-99.0); RED BLOOD CELL COUNT 2.75 M/uL (3.77-5.24); WHITE BLOOD CELL COUNT,WBC 10.6 K/uL (3.2-11.0)
[2023-01-16] MEDS ORDERED: Polyethylene Glycol 3350 Powder 238 GM Bot PO ONE (17:00)
[2023-01-16] MEDS: Loratadine 10 MG Tab PO SCH (20:04)
[2023-01-16] MEDS: Montelukast 10 MG Tab PO SCH (20:04)
[2023-01-17 05:17] LABS: HEMATOCRIT 25.3 % (34.3-46.0); HEMOGLOBIN 8.6 g/dL (11.2-15.5); MEAN CORPUSCULAR HEMOGLOBIN 32.2 pg (31.6-35.5); MEAN CORPUSCULAR VOLUME 94.8 fL (81.4-99.0); RED BLOOD CELL COUNT 2.67 M/uL (3.77-5.24); WHITE BLOOD CELL COUNT,WBC 8.3 K/uL (3.2-11.0)
[2023-01-17 06:04] LABS: ALANINE AMINOTRANSFERASE,ALT 18 U/L (12-78); ALBUMIN 2.4 g/dL (3.4-5.0); ALKALINE PHOSPHATASE 59 U/L (46-116); ASPARTATE AMNIOTRANSFERASE,AST 22 U/L (15-37); BILIRUBIN TOTAL 0.8 mg/dL (0.2-1.0); BLOOD UREA NITROGEN,BUN 14 mg/dL (7-18); CALCIUM 7.9 mg/dL (8.5-10.1); CARBON DIOXIDE,CO2 26 mmol/L (21-32); CHLORIDE,CL 109 mmol/L (100-108); CREATININE 0.8 mg/dL (0.6-1.0); EST CRCL DRUG DOSING (CG) 72.63 mL/min; ESTIMATED GFR 86 mL/min (>60); FERRITIN 73 ng/ml (8-388); GLUCOSE RANDOM 102 mg/dL (74-106); MAGNESIUM 1.8 mg/dL (1.8-2.4); PHOSPHORUS 3.5 mg/dL (2.5-4.9); POTASSIUM,K 3.4 mmol/L (3.6-5.2); PRO B-TYPE NATRIUR PEPT,BNPPRO 133 pg/mL (5-125); PROTEIN TOTAL,TP 4.7 g/dL (6.4-8.2); SODIUM,NA 142 mmol/L (140-148)
[2023-01-17 06:43] LABS: ANION GAP 10.4 mmol/L (5.0-14.0)
[2023-01-17] MEDS: Formoterol/Mometasone 200-5 MCG 8.8 GM Inhaler IH SCH ×2 (07:08→21:58)
[2023-01-17] MEDS ORDERED: Propofol 200 MG/20 ML SDV ONE (07:10)
[2023-01-17] MEDS ORDERED: Midazolam 1 MG/ML 2 ML SDV ONE (07:10)
[2023-01-17] MEDS ORDERED: fentaNYL 100 MCG/2 ML SDV ONE (07:10)
[2023-01-17] MEDS ORDERED: Ondansetron 4 MG/2 ML SDV ONE (07:13)
[2023-01-17] MEDS: Pantoprazole 80 MG in Sodium Chloride 0.9% 100 ML IV SCH (08:50)
[2023-01-17] MEDS: Levothyroxine 100 MCG, Levothyroxine 25 MCG PO SCH ×2 (09:26)
[2023-01-17] MEDS: Pantoprazole 40 MG Tab.CR PO SCH (16:29)
[2023-01-17] MEDS: Loratadine 10 MG Tab PO SCH (21:57)
[2023-01-17] MEDS: Montelukast 10 MG Tab PO SCH (21:57)
[2023-01-18 04:40] LABS: HEMATOCRIT 26.9 % (34.3-46.0); MEAN CORPUSCULAR HEMOGLOBIN 31.7 pg (31.6-35.5); MEAN CORPUSCULAR HGB CONC 33.5 g/dL (31.6-35.5); MEAN CORPUSCULAR VOLUME 94.7 fL (81.4-99.0); RED BLOOD CELL COUNT 2.84 M/uL (3.77-5.24)
[2023-01-18 04:57] LABS: ALANINE AMINOTRANSFERASE,ALT 15 U/L (12-78); ALBUMIN 2.5 g/dL (3.4-5.0); ALKALINE PHOSPHATASE 65 U/L (46-116); ASPARTATE AMNIOTRANSFERASE,AST 18 U/L (15-37); BILIRUBIN TOTAL 0.5 mg/dL (0.2-1.0); BLOOD UREA NITROGEN,BUN 14 mg/dL (7-18); CALCIUM 7.8 mg/dL (8.5-10.1); CARBON DIOXIDE,CO2 26 mmol/L (21-32); CHLORIDE,CL 110 mmol/L (100-108); CREATININE 0.8 mg/dL (0.6-1.0); EST CRCL DRUG DOSING (CG) 72.63 mL/min; ESTIMATED GFR 86 mL/min (>60); GLUCOSE RANDOM 94 mg/dL (74-106); MAGNESIUM 1.9 mg/dL (1.8-2.4); PHOSPHORUS 3.6 mg/dL (2.5-4.9); POTASSIUM,K 3.4 mmol/L (3.6-5.2); PROTEIN TOTAL,TP 4.9 g/dL (6.4-8.2); SODIUM,NA 143 mmol/L (140-148)
[2023-01-18 05:32] LABS: ANION GAP 10.4 mmol/L (5.0-14.0)
[2023-01-18] MEDS: Formoterol/Mometasone 200-5 MCG 8.8 GM Inhaler IH SCH (07:23)
[2023-01-18] MEDS: Levothyroxine 100 MCG, Levothyroxine 25 MCG PO SCH ×2 (08:10)
[2023-01-18] MEDS: Pantoprazole 40 MG Tab.CR PO SCH (08:10)
[2023-01-18] MEDS ORDERED: Potassium Chloride 20 MEQ Tab.ER PO ONE (09:00)
[2023-01-18 17:12] LABS: H. PYLORI BREATH TEST Positive (Negative)
== END 2023-01-18 11:10 | disposition home or self-care (01) | DRG 253 ==
LOC: JP.ED 13:25 → JP.ICU 15:50
PROVIDERS: ADMIT Internal Medicine; ATTEND Internal Medicine
PROC: 0DJ08ZZ Inspection of Upper Intestinal Tract, Via Natural or Artificial Opening Endoscopic (ICD-10-PCS; principal; 2023-01-16)
PROC: 0DJD8ZZ Inspection of Lower Intestinal Tract, Via Natural or Artificial Opening Endoscopic (ICD-10-PCS; 2023-01-17)
DX: K92.2 Gastrointestinal hemorrhage, unspecified (principal); K91.2 Postsurgical malabsorption, not elsewhere classified; D62 Acute posthemorrhagic anemia; E53.8 Deficiency of other specified B group vitamins; K57.30 Diverticulosis of large intestine without perforation or abscess without bleeding; E78.00 Pure hypercholesterolemia, unspecified; J45.909 Unspecified asthma, uncomplicated; I10 Essential (primary) hypertension; E03.9 Hypothyroidism, unspecified; M19.90 Unspecified osteoarthritis, unspecified site; H54.7 Unspecified visual loss; Z88.1 Allergy status to other antibiotic agents; Z91.040 Latex allergy status; Z91.09 Other allergy status, other than to drugs and biological substances; Z79.82 Long term (current) use of aspirin; Z79.899 Other long term (current) drug therapy; Z98.84 Bariatric surgery status
CPT/HCPCS: 36415; 36430; 74176; 80048; 80053; 82306; 82525; 82607; 82728; 82746; 83013; 83735; 83880; 84100; 84590; 84630; 85018; 85025; 85027; 85610; 86140; 86850; 86900; 86901; 86920; 86922; 94640; 96361; 96374; 96375; 99222; 99232; 99283; 99285-25; A9270-GY; C9113; J1170; J2250; J2405; J2704; J3010; J3490; J7030; P9016; U0002

== ENCOUNTER 2023-04-09 18:14 | Inpatient (IN) | payer BC ==
[2023-04-09 19:55] LABS: BASOPHILS ABSOLUTE AUTO 0.06 K/uL (0.00-0.10); BASOPHILS PERCENT AUTO 0.8 % (0.1-1.3); EOSINOPHILS ABSOLUTE AUTO 0.33 K/uL (0.00-0.40); EOSINOPHILS PERCENT AUTO 4.4 % (0.0-5.4); HEMATOCRIT 40.8 % (34.3-46.0); HEMOGLOBIN 13.4 g/dL (11.2-15.5); IMMATURE GRAN PERCENT AUTO 0.1 % (0.0-0.7); LYMPHOCYTES ABSOLUTE AUTO 2.02 K/uL (0.8-3.3); LYMPHOCYTES PERCENT AUTO 27.2 % (11.4-47.7); MEAN CORPUSCULAR HEMOGLOBIN 31.5 pg (31.6-35.5); MEAN CORPUSCULAR HGB CONC 32.8 g/dL (31.6-35.5); MONOCYTES ABSOLUTE AUTO 0.72 K/uL (0.20-0.90); MONOCYTES PERCENT AUTO 9.7 % (3.3-12.6); NEUTROPHILS PERCENT AUTO 57.8 % (40.0-78.1); PLATELET COUNT,PLT 223 K/uL (130-375); RED BLOOD CELL COUNT 4.25 M/uL (3.77-5.24); WHITE BLOOD CELL COUNT,WBC 7.4 K/uL (3.2-11.0)
[2023-04-09 20:04] LABS: IMMATURE GRAN ABSOLUTE AUTO 0.01 K/uL (0.00-0.23)
[2023-04-09] MEDS ORDERED: Sodium Chloride 0.9% 1,000 ML IV ONE (20:08)
[2023-04-09 20:16] LABS: A/G RATIO 1.1 (1.2-2.2); ALANINE AMINOTRANSFERASE,ALT 30 U/L (12-78); ALBUMIN 3.6 g/dL (3.4-5.0); ALKALINE PHOSPHATASE 110 U/L (46-116); ASPARTATE AMNIOTRANSFERASE,AST 32 U/L (15-37); BILIRUBIN TOTAL 0.6 mg/dL (0.2-1.0); BLOOD UREA NITROGEN,BUN 24 mg/dL (7-18); CALCIUM 8.8 mg/dL (8.5-10.1); CARBON DIOXIDE,CO2 33 mmol/L (21-32); CHLORIDE,CL 102 mmol/L (100-108); EST CRCL DRUG DOSING (CG) 60.36 mL/min; ESTIMATED GFR 66 mL/min (>60); GLUCOSE RANDOM 116 mg/dL (74-106); POTASSIUM,K 3.9 mmol/L (3.6-5.2); SODIUM,NA 140 mmol/L (140-148)
[2023-04-09 20:23] LABS: ANION GAP 8.9 mmol/L (5.0-14.0)
[2023-04-10] MEDS ORDERED: Acetaminophen 325 MG Tab PO PRN (00:40)
[2023-04-10] MEDS ORDERED: HYDROmorphone 0.5 MG/0.5 ML Syringe IVPUSH PRN (00:40)
[2023-04-10] MEDS ORDERED: Albuterol 0.083% 2.5 MG/3 ML Neb Soln NEB PRN (00:40)
[2023-04-10] MEDS ORDERED: Pantoprazole 80 MG in Sodium Chloride 0.9% 100 ML IV ONE (00:40)
[2023-04-10] MEDS ORDERED: Ondansetron 4 MG Tab.DIS PO PRN (00:40)
[2023-04-10] MEDS ORDERED: Ondansetron 4 MG/2 ML SDV IV PRN (00:40)
[2023-04-10] MEDS: Sodium Chloride 0.9% 1,000 ML IV SCH ×4 (00:57→19:16)
[2023-04-10 05:24] LABS: HEMATOCRIT 32.8 % (34.3-46.0); HEMOGLOBIN 10.7 g/dL (11.2-15.5); MEAN CORPUSCULAR HEMOGLOBIN 31.6 pg (31.6-35.5); MEAN CORPUSCULAR HGB CONC 32.6 g/dL (31.6-35.5); MEAN CORPUSCULAR VOLUME 96.8 fL (81.4-99.0); RED BLOOD CELL COUNT 3.39 M/uL (3.77-5.24); WHITE BLOOD CELL COUNT,WBC 5.5 K/uL (3.2-11.0)
[2023-04-10 05:42] LABS: ANION GAP 6.1 mmol/L (5.0-14.0); CALCIUM 7.9 mg/dL (8.5-10.1); CREATININE 0.8 mg/dL (0.6-1.0); EST CRCL DRUG DOSING (CG) 75.45 mL/min; POTASSIUM,K 3.9 mmol/L (3.6-5.2)
[2023-04-10 05:55] LABS: INR 1.1; PROTHROMBIN TIME 10.9 sec (9.2-10.6); PTT,PARTIAL THROMBOPLSTIN TIME 31.9 sec (21.8-27.3)
[2023-04-10] MEDS ORDERED: Glycopyrrolate 0.2 MG/ML 2 ML SDV IVPUSH ONE (09:00)
[2023-04-10] MEDS ORDERED: fentaNYL 50 MCG/ML SDV ONE (09:25)
[2023-04-10] MEDS ORDERED: Propofol 200 MG/20 ML SDV ONE (09:25)
[2023-04-10] MEDS ORDERED: Midazolam 1 MG/ML 2 ML SDV ONE (09:25)
[2023-04-10] MEDS: Pantoprazole 40 MG Vial IVPUSH SCH ×2 (10:21→23:24)
[2023-04-10] MEDS: Levothyroxine 100 MCG Tab PO SCH (13:00)
[2023-04-10] MEDS: Levothyroxine 25 MCG Tab PO SCH (13:00)
[2023-04-10] MEDS: Formoterol/Mometasone 100-5 MCG 8.8 GM Inhaler IH SCH ×2 (13:01→20:07)
[2023-04-10] MEDS ORDERED: Iopamidol 612 MG/ML 100 ML Bottle IV PRN (13:04)
[2023-04-10] MEDS ORDERED: Sodium Chloride 0.9% 50 ML IV SCH (13:15)
[2023-04-10] MEDS ORDERED: methylPREDNISolone Sodium Succinate 40 MG/1 ML SDV IVPUSH ONE (13:16)
[2023-04-10] MEDS ORDERED: Famotidine 20 MG/2 ML SDV IVPUSH ONE (13:16)
[2023-04-10] MEDS: Sodium Chloride 0.9% 10 ML Syringe FLUSH ONE ×2 (13:55→14:37)
[2023-04-10 16:57] LABS: BASOPHILS ABSOLUTE AUTO 0.06 K/uL (0.00-0.10); BASOPHILS PERCENT AUTO 0.9 % (0.1-1.3); EOSINOPHILS ABSOLUTE AUTO 0.08 K/uL (0.00-0.40); EOSINOPHILS PERCENT AUTO 1.2 % (0.0-5.4); HEMOGLOBIN 11.2 g/dL (11.2-15.5); IMMATURE GRAN ABSOLUTE AUTO 0.03 K/uL (0.00-0.23); IMMATURE GRAN PERCENT AUTO 0.4 % (0.0-0.7); LYMPHOCYTES PERCENT AUTO 7.4 % (11.4-47.7); MEAN CORPUSCULAR HEMOGLOBIN 31.3 pg (31.6-35.5); MEAN CORPUSCULAR VOLUME 97.8 fL (81.4-99.0); MONOCYTES ABSOLUTE AUTO 0.12 K/uL (0.20-0.90); MONOCYTES PERCENT AUTO 1.8 % (3.3-12.6); NEUTROPHILS PERCENT AUTO 88.3 % (40.0-78.1); PLATELET COUNT,PLT 201 K/uL (130-375); RED BLOOD CELL COUNT 3.58 M/uL (3.77-5.24); WHITE BLOOD CELL COUNT,WBC 6.8 K/uL (3.2-11.0)
[2023-04-11 04:44] LABS: BASOPHILS ABSOLUTE AUTO 0.03 K/uL (0.00-0.10); BASOPHILS PERCENT AUTO 0.4 % (0.1-1.3); HEMATOCRIT 25.3 % (34.3-46.0); IMMATURE GRAN ABSOLUTE AUTO 0.04 K/uL (0.00-0.23); IMMATURE GRAN PERCENT AUTO 0.5 % (0.0-0.7); LYMPHOCYTES PERCENT AUTO 12.1 % (11.4-47.7); MEAN CORPUSCULAR HEMOGLOBIN 30.7 pg (31.6-35.5); MEAN CORPUSCULAR HGB CONC 31.6 g/dL (31.6-35.5); MEAN CORPUSCULAR VOLUME 96.9 fL (81.4-99.0); MONOCYTES ABSOLUTE AUTO 0.43 K/uL (0.20-0.90); MONOCYTES PERCENT AUTO 5.2 % (3.3-12.6); NEUTROPHILS ABSOLUTE AUTO 6.77 K/uL (1.0-7.6); NEUTROPHILS PERCENT AUTO 81.8 % (40.0-78.1); PLATELET COUNT,PLT 171 K/uL (130-375); RED BLOOD CELL COUNT 2.61 M/uL (3.77-5.24); WHITE BLOOD CELL COUNT,WBC 8.3 K/uL (3.2-11.0)
[2023-04-11 05:23] LABS: A/G RATIO 0.9 (1.2-2.2); ALANINE AMINOTRANSFERASE,ALT 17 U/L (12-78); ALBUMIN 2.2 g/dL (3.4-5.0); ALKALINE PHOSPHATASE 65 U/L (46-116); ASPARTATE AMNIOTRANSFERASE,AST 15 U/L (15-37); BILIRUBIN TOTAL 0.4 mg/dL (0.2-1.0); BLOOD UREA NITROGEN,BUN 28 mg/dL (7-18); CALCIUM 7.8 mg/dL (8.5-10.1); CARBON DIOXIDE,CO2 25 mmol/L (21-32); CHLORIDE,CL 111 mmol/L (100-108); CREATININE 0.7 mg/dL (0.6-1.0); EST CRCL DRUG DOSING (CG) 86.23 mL/min; ESTIMATED GFR 101 mL/min (>60); FERRITIN 34 ng/ml (8-388); GLUCOSE RANDOM 131 mg/dL (74-106); MAGNESIUM 1.8 mg/dL (1.8-2.4); POTASSIUM,K 4.1 mmol/L (3.6-5.2); PROTEIN TOTAL,TP 4.7 g/dL (6.4-8.2); SODIUM,NA 141 mmol/L (140-148)
[2023-04-11 05:26] LABS: ANION GAP 9.1 mmol/L (5.0-14.0)
[2023-04-11] MEDS: Levothyroxine 100 MCG Tab PO SCH (07:34)
[2023-04-11] MEDS: Levothyroxine 25 MCG Tab PO SCH (07:35)
[2023-04-11] MEDS: Formoterol/Mometasone 100-5 MCG 8.8 GM Inhaler IH SCH ×2 (09:01→20:51)
[2023-04-11] MEDS: Pantoprazole 40 MG Vial IVPUSH SCH ×2 (11:15→22:40)
[2023-04-11] MEDS: Dextrose 5%-Lactated Ringers 1,000 ML IV SCH (13:44)
[2023-04-11 17:15] LABS: HEMATOCRIT 28.8 % (34.3-46.0); HEMOGLOBIN 9.7 g/dL (11.2-15.5); MEAN CORPUSCULAR HEMOGLOBIN 31.5 pg (31.6-35.5); MEAN CORPUSCULAR HGB CONC 33.7 g/dL (31.6-35.5); MEAN CORPUSCULAR VOLUME 93.5 fL (81.4-99.0); RED BLOOD CELL COUNT 3.08 M/uL (3.77-5.24); WHITE BLOOD CELL COUNT,WBC 10.6 K/uL (3.2-11.0)
[2023-04-12 04:51] LABS: HEMATOCRIT 24.8 % (34.3-46.0); HEMOGLOBIN 8.2 g/dL (11.2-15.5); MEAN CORPUSCULAR HEMOGLOBIN 31.1 pg (31.6-35.5); MEAN CORPUSCULAR HGB CONC 33.1 g/dL (31.6-35.5); MEAN CORPUSCULAR VOLUME 93.9 fL (81.4-99.0); RED BLOOD CELL COUNT 2.64 M/uL (3.77-5.24); WHITE BLOOD CELL COUNT,WBC 6.7 K/uL (3.2-11.0)
[2023-04-12 05:09] LABS: ALANINE AMINOTRANSFERASE,ALT 15 U/L (12-78); ALBUMIN 2.3 g/dL (3.4-5.0); ALKALINE PHOSPHATASE 59 U/L (46-116); ASPARTATE AMNIOTRANSFERASE,AST 14 U/L (15-37); BILIRUBIN TOTAL 0.5 mg/dL (0.2-1.0); BLOOD UREA NITROGEN,BUN 15 mg/dL (7-18); CALCIUM 7.8 mg/dL (8.5-10.1); CARBON DIOXIDE,CO2 27 mmol/L (21-32); CHLORIDE,CL 111 mmol/L (100-108); CREATININE 0.8 mg/dL (0.6-1.0); EST CRCL DRUG DOSING (CG) 75.45 mL/min; ESTIMATED GFR 86 mL/min (>60); GLUCOSE RANDOM 127 mg/dL (74-106); MAGNESIUM 1.9 mg/dL (1.8-2.4); PHOSPHORUS 3.4 mg/dL (2.5-4.9); POTASSIUM,K 3.8 mmol/L (3.6-5.2); PROTEIN TOTAL,TP 4.3 g/dL (6.4-8.2); SODIUM,NA 142 mmol/L (140-148)
[2023-04-12 05:16] LABS: A/G RATIO 1.2 (1.2-2.2); ANION GAP 7.8 mmol/L (5.0-14.0)
[2023-04-12] MEDS ORDERED: fentaNYL 250 MCG/5 ML SDV ONE ×2 (06:56→10:16)
[2023-04-12] MEDS ORDERED: Ondansetron 4 MG/2 ML SDV ONE (06:56)
[2023-04-12] MEDS ORDERED: Dexamethasone 4 MG/ML SDV ONE (06:56)
[2023-04-12] MEDS ORDERED: Propofol 200 MG/20 ML SDV ONE (06:56)
[2023-04-12] MEDS ORDERED: Succinylcholine 200 MG/10 ML MDV ONE (06:56)
[2023-04-12] MEDS ORDERED: Rocuronium 50 MG/5 ML Vial ONE (06:56)
[2023-04-12] MEDS ORDERED: Glycopyrrolate 0.2 MG/ML 5 ML MDV ONE (06:56)
[2023-04-12] MEDS ORDERED: Neostigmine Methylsulfate 1 MG/ML 5 ML Syringe ONE (06:56)
[2023-04-12] MEDS ORDERED: Meropenem 500 MG SDV ONE (07:05)
[2023-04-12] MEDS ORDERED: Bupivacaine 0.5% 50 ML MDV ONE (07:05)
[2023-04-12] MEDS ORDERED: Lidocaine 1% with EPINEPHrine 1:100,000 50 ML MDV ONE (07:06)
[2023-04-12] MEDS: Formoterol/Mometasone 100-5 MCG 8.8 GM Inhaler IH SCH ×2 (08:13→20:47)
[2023-04-12] MEDS ORDERED: Ketamine 500 MG/5 ML MDV IV SCH ×3 (09:00→11:00)
[2023-04-12] MEDS ORDERED: cefOXitin 2 GM in Sodium Chloride 0.9% 50 ML IV ONE (09:00)
[2023-04-12] MEDS ORDERED: Ketamine 18 MG in Sodium Chloride 0.9% 19.82 ML IV SCH (09:00)
[2023-04-12] MEDS: Dextrose 5%-Lactated Ringers 1,000 ML IV SCH ×2 (09:32→15:15)
[2023-04-12] MEDS ORDERED: Ondansetron 4 MG/2 ML SDV IVPUSH PRN ×3 (10:22→17:00)
[2023-04-12] MEDS ORDERED: diphenhydrAMINE 25 MG Cap PO PRN (10:22)
[2023-04-12] MEDS ORDERED: Naloxone 0.4 MG/ML SDV IVPUSH PRN (10:22)
[2023-04-12] MEDS ORDERED: diphenhydrAMINE 50 MG/ML SDV IVPUSH PRN ×2 (10:22→13:45)
[2023-04-12] MEDS: HYDROmorphone/Normal Saline 6 MG/30 ML PCA Vial IV PRN ×2 (11:05→21:37)
[2023-04-12] MEDS ORDERED: Tranexamic Acid 1,000 MG in Sodium Chloride 0.9% 50 ML IV ONE (11:15)
[2023-04-12 12:05] LABS: HEMATOCRIT 28.7 % (34.3-46.0); HEMOGLOBIN 9.7 g/dL (11.2-15.5); MEAN CORPUSCULAR HEMOGLOBIN 31.8 pg (31.6-35.5); MEAN CORPUSCULAR HGB CONC 33.8 g/dL (31.6-35.5); MEAN CORPUSCULAR VOLUME 94.1 fL (81.4-99.0); RED BLOOD CELL COUNT 3.05 M/uL (3.77-5.24); WHITE BLOOD CELL COUNT,WBC 12.8 K/uL (3.2-11.0)
[2023-04-12] MEDS ORDERED: Cyclobenzaprine 10 MG Tab PO PRN (13:37)
[2023-04-12] MEDS ORDERED: hydrOXYzine HCL 100 MG/2 ML SDV IM PRN (13:45)
[2023-04-12] MEDS ORDERED: Labetalol 20 MG/4 ML Syringe IVPUSH PRN (13:45)
[2023-04-12] MEDS ORDERED: Albuterol/Ipratropium 3.0-0.5 MG/3 ML Neb Soln INH PRN (13:45)
[2023-04-12] MEDS ORDERED: Metoclopramide 10 MG/2 ML SDV IVPUSH PRN (13:45)
[2023-04-12] MEDS ORDERED: Acetaminophen 500 MG Tab PO PRN (13:45)
[2023-04-12] MEDS ORDERED: Tranexamic Acid 800 MG in Sodium Chloride 0.9% 50 ML IV ONE (15:00)
[2023-04-12] MEDS: Albuterol/Ipratropium 3.0-0.5 MG/3 ML Neb Soln INH SCH ×2 (15:06→20:47)
[2023-04-12] MEDS ORDERED: Pantoprazole 40 MG Vial IVPUSH SCH (16:00)
[2023-04-12] MEDS: cefOXitin 2 GM in Sodium Chloride 0.9% 50 ML IV SCH ×2 (16:19→21:41)
[2023-04-12] MEDS: MVI, Adult with Vitamin K 10 ML, Thiamine 200 MG, Zinc/Copper/Manganese/Selenium 1 ML i... IV SCH ×4 (17:30)
[2023-04-12] MEDS: Montelukast 10 MG Tab PO SCH (20:47)
[2023-04-12] MEDS: Acetaminophen 500 MG Tab PO SCH (22:32)
[2023-04-13] MEDS: Dextrose 5%-Lactated Ringers 1,000 ML IV SCH ×2 (00:17→07:00)
[2023-04-13] MEDS: Pantoprazole 40 MG Vial IVPUSH SCH (01:15)
[2023-04-13] MEDS: Levothyroxine 100 MCG Tab PO SCH (01:15)
[2023-04-13] MEDS: Levothyroxine 25 MCG Tab PO SCH (01:15)
[2023-04-13] MEDS: cefOXitin 2 GM in Sodium Chloride 0.9% 50 ML IV SCH ×3 (03:04→16:47)
[2023-04-13] MEDS ORDERED: Iopamidol 612 MG/ML 30 ML SDV PO STA (03:37)
[2023-04-13] MEDS ORDERED: methylPREDNISolone Sodium Succinate 40 MG/1 ML SDV IVPUSH ONE (03:48)
[2023-04-13] MEDS ORDERED: Famotidine 20 MG/2 ML SDV IVPUSH ONE (03:48)
[2023-04-13 04:12] LABS: BASOPHILS PERCENT AUTO 0.1 % (0.1-1.3); HEMATOCRIT 26.5 % (34.3-46.0); HEMOGLOBIN 8.8 g/dL (11.2-15.5); IMMATURE GRAN ABSOLUTE AUTO 0.19 K/uL (0.00-0.23); IMMATURE GRAN PERCENT AUTO 1.2 % (0.0-0.7); LYMPHOCYTES ABSOLUTE AUTO 0.86 K/uL (0.8-3.3); LYMPHOCYTES PERCENT AUTO 5.4 % (11.4-47.7); MEAN CORPUSCULAR HEMOGLOBIN 31.8 pg (31.6-35.5); MEAN CORPUSCULAR HGB CONC 33.2 g/dL (31.6-35.5); MEAN CORPUSCULAR VOLUME 95.7 fL (81.4-99.0); MONOCYTES ABSOLUTE AUTO 1.13 K/uL (0.20-0.90); MONOCYTES PERCENT AUTO 7.1 % (3.3-12.6); NEUTROPHILS ABSOLUTE AUTO 13.76 K/uL (1.0-7.6); NEUTROPHILS PERCENT AUTO 86.2 % (40.0-78.1); PLATELET COUNT,PLT 133 K/uL (130-375); RED BLOOD CELL COUNT 2.77 M/uL (3.77-5.24)
[2023-04-13 04:14] LABS: BASOPHILS ABSOLUTE AUTO 0.02 K/uL (0.00-0.10)
[2023-04-13 04:31] LABS: A/G RATIO 0.9 (1.2-2.2); ALANINE AMINOTRANSFERASE,ALT 26 U/L (12-78); ALBUMIN 2.1 g/dL (3.4-5.0); ALKALINE PHOSPHATASE 60 U/L (46-116); ANION GAP 5.1 mmol/L (5.0-14.0); ASPARTATE AMNIOTRANSFERASE,AST 32 U/L (15-37); BILIRUBIN TOTAL 0.6 mg/dL (0.2-1.0); BLOOD UREA NITROGEN,BUN 12 mg/dL (7-18); CALCIUM 7.6 mg/dL (8.5-10.1); CARBON DIOXIDE,CO2 27 mmol/L (21-32); CHLORIDE,CL 108 mmol/L (100-108); CREATININE 1.2 mg/dL (0.6-1.0); ESTIMATED GFR 53 mL/min (>60); GLUCOSE RANDOM 228 mg/dL (74-106); MAGNESIUM 1.5 mg/dL (1.8-2.4); PHOSPHORUS 3.3 mg/dL (2.5-4.9); POTASSIUM,K 4.4 mmol/L (3.6-5.2); PROTEIN TOTAL,TP 4.4 g/dL (6.4-8.2); SODIUM,NA 140 mmol/L (140-148)
[2023-04-13] MEDS: Acetaminophen 500 MG Tab PO SCH ×3 (05:02→21:05)
[2023-04-13] MEDS: Albuterol/Ipratropium 3.0-0.5 MG/3 ML Neb Soln INH SCH ×4 (06:04→21:05)
[2023-04-13] MEDS: Magnesium Sulfate/Water 2 GM/50 ML BAG IV SCH ×3 (08:35→19:28)
[2023-04-13] MEDS: Formoterol/Mometasone 100-5 MCG 8.8 GM Inhaler IH SCH ×2 (09:09→21:05)
[2023-04-13] MEDS: Albumin Human 25 GM in Premix Bag 1 BAG IV SCH (09:23)
[2023-04-13] MEDS: Pantoprazole 40 MG Tab.CR PO SCH (11:38)
[2023-04-13] MEDS: MVI, Adult with Vitamin K 10 ML, Thiamine 200 MG, Zinc/Copper/Manganese/Selenium 1 ML i... IV SCH ×4 (16:47)
[2023-04-13] MEDS: Montelukast 10 MG Tab PO SCH (21:06)
[2023-04-14] MEDS: Magnesium Sulfate/Water 2 GM/50 ML BAG IV SCH ×4 (01:38→19:35)
[2023-04-14] MEDS: Dextrose 5%-Lactated Ringers 1,000 ML IV SCH ×2 (02:39→16:50)
[2023-04-14 04:42] LABS: HEMATOCRIT 25.2 % (34.3-46.0); HEMOGLOBIN 8.3 g/dL (11.2-15.5); MEAN CORPUSCULAR HEMOGLOBIN 31.6 pg (31.6-35.5); MEAN CORPUSCULAR HGB CONC 32.9 g/dL (31.6-35.5); MEAN CORPUSCULAR VOLUME 95.8 fL (81.4-99.0); RED BLOOD CELL COUNT 2.63 M/uL (3.77-5.24); WHITE BLOOD CELL COUNT,WBC 13.2 K/uL (3.2-11.0)
[2023-04-14 05:18] LABS: A/G RATIO 1.1 (1.2-2.2); ALANINE AMINOTRANSFERASE,ALT 24 U/L (12-78); ALBUMIN 2.3 g/dL (3.4-5.0); ALKALINE PHOSPHATASE 50 U/L (46-116); ANION GAP 4.4 mmol/L (5.0-14.0); ASPARTATE AMNIOTRANSFERASE,AST 27 U/L (15-37); BILIRUBIN TOTAL 0.4 mg/dL (0.2-1.0); BLOOD UREA NITROGEN,BUN 8 mg/dL (7-18); CALCIUM 7.7 mg/dL (8.5-10.1); CARBON DIOXIDE,CO2 28 mmol/L (21-32); CHLORIDE,CL 108 mmol/L (100-108); CREATININE 0.8 mg/dL (0.6-1.0); EST CRCL DRUG DOSING (CG) 75.25 mL/min; ESTIMATED GFR 86 mL/min (>60); GLUCOSE RANDOM 134 mg/dL (74-106); PHOSPHORUS 3.3 mg/dL (2.5-4.9); PROTEIN TOTAL,TP 4.4 g/dL (6.4-8.2); SODIUM,NA 140 mmol/L (140-148)
[2023-04-14] MEDS: Acetaminophen 500 MG Tab PO SCH ×3 (05:19→21:15)
[2023-04-14] MEDS: Albuterol/Ipratropium 3.0-0.5 MG/3 ML Neb Soln INH SCH ×3 (07:02→21:17)
[2023-04-14] MEDS: Pantoprazole 40 MG Tab.CR PO SCH (07:57)
[2023-04-14] MEDS: Formoterol/Mometasone 100-5 MCG 8.8 GM Inhaler IH SCH ×2 (08:23→21:14)
[2023-04-14] MEDS: Bisacodyl 5 MG Tab PO SCH ×2 (08:30→21:14)
[2023-04-14] MEDS: Docusate Sodium 100 MG Cap PO SCH ×2 (08:30→21:14)
[2023-04-14] MEDS ORDERED: Cyanocobalamin (Vitamin B12) 1,000 MCG/ML SDV IM ONE (09:00)
[2023-04-14] MEDS ORDERED: MVI, Adult with Vitamin K 10 ML, Thiamine 200 MG, Zinc/Copper/Manganese/Selenium 1 ML i... IV ONE ×4 (10:00)
[2023-04-14] MEDS: Albumin Human 25 GM in Premix Bag 1 BAG IV SCH (10:44)
[2023-04-14] MEDS: Montelukast 10 MG Tab PO SCH (21:15)
[2023-04-15] MEDS: Magnesium Sulfate/Water 2 GM/50 ML BAG IV SCH ×4 (00:59→20:02)
[2023-04-15] MEDS: Dextrose 5%-Lactated Ringers 1,000 ML IV SCH ×2 (02:37→15:59)
[2023-04-15 04:34] LABS: HEMATOCRIT 27.7 % (34.3-46.0); HEMOGLOBIN 9.1 g/dL (11.2-15.5); MEAN CORPUSCULAR HEMOGLOBIN 31.7 pg (31.6-35.5); MEAN CORPUSCULAR HGB CONC 32.9 g/dL (31.6-35.5); MEAN CORPUSCULAR VOLUME 96.5 fL (81.4-99.0); RED BLOOD CELL COUNT 2.87 M/uL (3.77-5.24); WHITE BLOOD CELL COUNT,WBC 8.8 K/uL (3.2-11.0)
[2023-04-15 04:51] LABS: ALANINE AMINOTRANSFERASE,ALT 24 U/L (12-78); ALBUMIN 2.6 g/dL (3.4-5.0); ALKALINE PHOSPHATASE 55 U/L (46-116); ASPARTATE AMNIOTRANSFERASE,AST 24 U/L (15-37); BILIRUBIN TOTAL 0.4 mg/dL (0.2-1.0); BLOOD UREA NITROGEN,BUN 9 mg/dL (7-18); CALCIUM 7.7 mg/dL (8.5-10.1); CARBON DIOXIDE,CO2 30 mmol/L (21-32); CHLORIDE,CL 107 mmol/L (100-108); CREATININE 0.8 mg/dL (0.6-1.0); EST CRCL DRUG DOSING (CG) 75.25 mL/min; ESTIMATED GFR 86 mL/min (>60); GLUCOSE RANDOM 103 mg/dL (74-106); PHOSPHORUS 3.5 mg/dL (2.5-4.9); POTASSIUM,K 3.8 mmol/L (3.6-5.2); PROTEIN TOTAL,TP 5.2 g/dL (6.4-8.2); SODIUM,NA 141 mmol/L (140-148)
[2023-04-15] MEDS: Acetaminophen 500 MG Tab PO SCH ×3 (05:21→22:10)
[2023-04-15] MEDS ORDERED: HYDROmorphone 2 MG Tab PO PRN (07:11)
[2023-04-15] MEDS: Albuterol/Ipratropium 3.0-0.5 MG/3 ML Neb Soln INH SCH ×4 (07:13→20:03)
[2023-04-15] MEDS: Pantoprazole 40 MG Tab.CR PO SCH (07:21)
[2023-04-15] MEDS: Formoterol/Mometasone 100-5 MCG 8.8 GM Inhaler IH SCH ×2 (08:13→20:03)
[2023-04-15] MEDS: Docusate Sodium 100 MG Cap PO SCH ×2 (08:23→20:03)
[2023-04-15] MEDS: Bisacodyl 5 MG Tab PO SCH (08:23)
[2023-04-15] MEDS: Albumin Human 25 GM in Premix Bag 1 BAG IV SCH (09:37)
[2023-04-15] MEDS: Hydrocortisone Acetate 25 MG Supp RECTAL SCH ×2 (13:14→20:03)
[2023-04-15] MEDS: Montelukast 10 MG Tab PO SCH (20:03)
[2023-04-16] MEDS: Magnesium Sulfate/Water 2 GM/50 ML BAG IV SCH (02:08)
[2023-04-16] MEDS: Dextrose 5%-Lactated Ringers 1,000 ML IV SCH (02:09)
[2023-04-16 04:25] LABS: HEMATOCRIT 26.4 % (34.3-46.0); HEMOGLOBIN 8.7 g/dL (11.2-15.5); MEAN CORPUSCULAR HEMOGLOBIN 31.9 pg (31.6-35.5); MEAN CORPUSCULAR VOLUME 96.7 fL (81.4-99.0); RED BLOOD CELL COUNT 2.73 M/uL (3.77-5.24); WHITE BLOOD CELL COUNT,WBC 6.4 K/uL (3.2-11.0)
[2023-04-16 05:09] LABS: A/G RATIO 1.2 (1.2-2.2); ALANINE AMINOTRANSFERASE,ALT 22 U/L (12-78); ALBUMIN 2.5 g/dL (3.4-5.0); ALKALINE PHOSPHATASE 57 U/L (46-116); ASPARTATE AMNIOTRANSFERASE,AST 19 U/L (15-37); BILIRUBIN TOTAL 0.5 mg/dL (0.2-1.0); BLOOD UREA NITROGEN,BUN 6 mg/dL (7-18); CALCIUM 7.4 mg/dL (8.5-10.1); CARBON DIOXIDE,CO2 29 mmol/L (21-32); CHLORIDE,CL 108 mmol/L (100-108); CREATININE 0.7 mg/dL (0.6-1.0); ESTIMATED GFR 101 mL/min (>60); GLUCOSE RANDOM 106 mg/dL (74-106); PHOSPHORUS 3.9 mg/dL (2.5-4.9); POTASSIUM,K 3.5 mmol/L (3.6-5.2); PROTEIN TOTAL,TP 4.6 g/dL (6.4-8.2); SODIUM,NA 142 mmol/L (140-148)
[2023-04-16 05:29] LABS: ANION GAP 8.5 mmol/L (5.0-14.0)
[2023-04-16] MEDS: Acetaminophen 500 MG Tab PO SCH (06:00)
[2023-04-16] MEDS: Albuterol/Ipratropium 3.0-0.5 MG/3 ML Neb Soln INH SCH ×2 (06:57→12:49)
[2023-04-16] MEDS: Pantoprazole 40 MG Tab.CR PO SCH (07:14)
[2023-04-16] MEDS: Hydrocortisone Acetate 25 MG Supp RECTAL SCH (08:05)
[2023-04-16] MEDS: Docusate Sodium 100 MG Cap PO SCH (08:06)
[2023-04-16] MEDS: Formoterol/Mometasone 100-5 MCG 8.8 GM Inhaler IH SCH (08:21)
== END 2023-04-16 12:50 | disposition home or self-care (01) | DRG 220 ==
LOC: JP.ED 18:14 → JP.ICU 23:39
PROVIDERS: ADMIT Internal Medicine; ATTEND Surgery
PROC: 0DB80ZZ Excision of Small Intestine, Open Approach (ICD-10-PCS; principal; 2023-04-09)
PROC: 0DB60ZZ Excision of Stomach, Open Approach (ICD-10-PCS; 2023-04-09)
PROC: 0WUF0JZ Supplement Abdominal Wall with Synthetic Substitute, Open Approach (ICD-10-PCS; 2023-04-09)
PROC: 0D160ZA Bypass Stomach to Jejunum, Open Approach (ICD-10-PCS; 2023-04-09)
PROC: 0DJ08ZZ Inspection of Upper Intestinal Tract, Via Natural or Artificial Opening Endoscopic (ICD-10-PCS; 2023-04-09)
DX: K25.4 Chronic or unspecified gastric ulcer with hemorrhage (principal); Q43.8 Other specified congenital malformations of intestine; K43.2 Incisional hernia without obstruction or gangrene; D62 Acute posthemorrhagic anemia; E78.00 Pure hypercholesterolemia, unspecified; I10 Essential (primary) hypertension; J45.909 Unspecified asthma, uncomplicated; M19.90 Unspecified osteoarthritis, unspecified site; E03.9 Hypothyroidism, unspecified; E53.8 Deficiency of other specified B group vitamins; Z98.890 Other specified postprocedural states; Z79.899 Other long term (current) drug therapy; Z88.8 Allergy status to other drugs, medicaments and biological substances; Z91.041 Radiographic dye allergy status; Z91.040 Latex allergy status
CPT/HCPCS: 36415; 36430; 74176; 74177; 74177-26; 74240; 74240-26; 80048; 80053; 82271; 82728; 83735; 84100; 85018; 85025; 85027; 85610; 85730; 86850; 86900; 86901; 86920; 86922; 94640; 96360; 96361; 99222; 99232; 99285; 99285-25; A9270-GY; C9113; J0131; J0171; J0330; J0694; J1100; J1170; J2185; J2250; J2405; J2704; J2710; J2795; J2920; J3010; J3410; J3411; J3420; J3475; J3490; J7030; J7120; J7121; J7620; P9016; P9047; Q9967; U0002